=== PATIENT | female | born 1955 | race Caucasian/White ===

== ENCOUNTER 2019-11-13 09:31 | Outpatient (CLI) | payer BC, SELFPAY ==
--- NOTE | ~2019-11-13 | MM_ITS ---
EXAMINATION: MM scrn harry implant BI w osvaldo HISTORY: Screening mammogram TECHNIQUE: Craniocaudal and mediolateral oblique 3-D tomosynthesis images with implant displacement a nd synthetic 2-D images were generated. Craniocaudal and mediolateral oblique views of the breasts wi thout implant displacement were obtained using full field digital mammography. CAD analysis was submi tted and interpreted. COMPARISON: 04/10/2016 bilateral digital diagnostic mammogram and limited right breast ultrasound BREAST PARENCHYMAL COMPOSITION: There are scattered areas of fibroglandular density. FINDINGS: Status post bilateral augmentation mammoplasty. There is a biopsy marker on the left; history of prior benign biopsy. There is no evidence of suspici ous mass, calcification, or architectural distortion to suggest malignancy in either breast. There sands s been no suspicious interval change. IMPRESSION: 1. No mammographic evidence of malignancy. 2. Recommend routine screening mammography in one year. BI-RADS Category 2: Benign finding(s). Reviewed, dictated and finalized at location A.
== END 2019-11-13 09:32 | disposition home or self-care (01) ==
LOC: ANHIMG 09:34
PROVIDERS: PCP Family Medicine Adolescent Medicine; Visit Provider Family Medicine Adolescent Medicine
DX: Z12.31 Encounter for screening mammogram for malignant neoplasm of breast (principal)
CPT/HCPCS: 77063; 77067

== ENCOUNTER 2020-08-20 12:32 | Outpatient (CLI) | payer BC, SELFPAY ==
--- NOTE | ~2020-08-20 | XR_ITS ---
EXAMINATION: XR chest 2V DATE: 08/20/2020 13:35 INDICATION: Shortness of breath TECHNIQUE: PA and lateral views of the chest are obtained. COMPARISON: 07/07/2017 FINDINGS: There are chronic airspace opacities of the left lung base. A calcified nodule of the left lung base is consistent with old granulomatous disease. There is no pleural effusion or pneumothorax. The cardiomediastinal silhouette is normal. There is mild thoracic spondylosis. Bilateral breast imp lants are noted. IMPRESSION: 1. Chronic left basilar atelectasis. Reviewed, dictated and finalized at location B.
== END 2020-08-20 12:33 | disposition home or self-care (01) ==
PROVIDERS: PCP Family Medicine Adolescent Medicine; Visit Provider Physician Assistant
DX: R06.02 Shortness of breath (principal); R91.8 Other nonspecific abnormal finding of lung field
CPT/HCPCS: 71046

== ENCOUNTER 2020-10-19 13:20 | Emergency (ER) | payer BC, SELFPAY ==
--- NOTE | ~2020-10-19 | CT_ITS ---
EXAMINATION: CT brain wo con, CT cervical spine wo con EXAM DATE: 10/19/2020 13:54 INDICATION: Head injury 11 days ago, dizziness. Left-sided neck pain. TECHNIQUE: Spiral CT of the head was performed without contrast. Axial, coronal and sagittal images were reviewed. Spiral CT of the cervical spine was performed without contrast. Axial images were rev iewed. Coronal and sagittal reformatted images were also reviewed. The dose-length product (DLP) fo r this examination was 605.33 (accession [id number]), 369.09 (accession [id number]) mGy-cm. The exposure was tailored according to patient size, and iterative reconstruction (ASIR) was used as additional dose reduction technique. Comparison is made to prior examination from 10/03/2013. FINDINGS: HEAD CT: There is no acute intraparenchymal hemorrhage. No evidence of intraparenchymal brain mass l esion. No evidence of acute infarction. There is mild periventricular and subcortical hypodensity, n onspecific but probably related to small vessel ischemic disease. There is mild prominence of the s ulci and ventricles related to cerebral atrophy. There is no mass effect or midline shift. There i s no obstructive hydrocephalus suspected. There are no extra-axial collections. There are no acute calvarial fractures. Patient has had bilateral ocular lens surgery. Soft tissue is unremarkable. T he visualized sinuses and mastoid air cells are well aerated. CERVICAL CT: There is no evidence of acute cervical fracture. The odontoid process is intact. Pre- dens space is normal. Prevertebral soft tissue is normal. There are no soft tissue abnormalities id entified. There is no disc space widening or traumatic vertebral body subluxation suspected. Mild t o moderate cervical spondylosis. Small right thyroid nodules. A detailed level by level evaluation o f spondylosis can be added as addendum if requested. IMPRESSION: 1. No acute intracranial findings or cervical fracture. 2. Cervical spondylosis. 3. Mild intracranial age related findings. Reviewed, dictated and finalized at location B. IMPRESSION: 1. No acute intracranial findings or cervical fracture. 2. Cervical spondylosis. 3. Mild intracranial age related findings.
[2020-10-19 13:21] VITALS: BP 154/77; PULSE 64; RESP 20; TEMP 36.4; O2SAT 96
== END 2020-10-19 14:00 | disposition left against medical advice (07) ==
PROVIDERS: Emergency Provider Emergency Medicine; PCP Family Medicine Adolescent Medicine
DX: R51.9 Headache, unspecified (principal)
CPT/HCPCS: 70450; 72125; 99199

== ENCOUNTER → 2022-04-14 13:03 | Outpatient (CLI) | payer OTHER, SELFPAY ==
--- NOTE | ~2022-04-14 | XR_ITS ---
XR chest 2V 04/14/2022 13:27 Indication: History of pneumonia. Asthma. Procedure: 2 view chest Comparison: Comparison to multiple prior studies sequentially, with oldest reviewed study dated 09/2016. Findings: There is hiatal hernia. Calcified granulomas present in the left lung base. Heart size norm al. No acute focal pneumonia, edema or effusion. No acute osseous abnormality. Impression: 1: No acute cardiopulmonary disease. 2: Moderate size hiatal hernia. Reviewed, dictated and finalized at location L. UP WORKER Impression: 1: No acute cardiopulmonary disease. 2: Moderate size hiatal hernia.
--- NOTE | ~2022-04-14 | XR_ITS ---
Right elbow Technique: AP, oblique, and lateral views were obtained. Clinical History: Pain Findings: No acute fracture or dislocation is seen. Osseous alignment is anatomic. Joint spaces are p reserved. There is mild enthesopathic change at the lateral epicondyle of the humerus. There is no di splacement of the fat pads, and no evidence for joint effusion. Impression: No fracture or dislocation. Mild enthesopathic change at the lateral epicondyle of the humerus. Reviewed, dictated and finalized at location M. CIL MACHINE OPERATOR Impression: No fracture or dislocation. Mild enthesopathic change at the lateral epicondyle of the humerus.
== END ==
PROVIDERS: PCP Emergency Medicine; Visit Provider Emergency Medicine
DX: J18.9 Pneumonia, unspecified organism (principal); J45.909 Unspecified asthma, uncomplicated; K44.9 Diaphragmatic hernia without obstruction or gangrene
CPT/HCPCS: 71046; 73080

== ENCOUNTER 2022-05-19 08:00 | Outpatient (CLI) | payer OTHER, SELFPAY | END 2022-05-19 08:01 | disposition home or self-care (01) | LOC: ANHAUDIO 08:01 | PROVIDERS: PCP Emergency Medicine; Visit Provider Emergency Medicine | DX: H90.0 Conductive hearing loss, bilateral (principal) | CPT/HCPCS: 92557; 92567 ==

== ENCOUNTER 2022-07-07 14:16 | Outpatient (CLI) | payer OTHER, SELFPAY ==
--- NOTE | ~2022-07-07 | XR_ITS ---
XR chest 2V 07/07/2022 14:30 Indication: Cough for 5 days Procedure: PA and lateral views of the chest Comparison: Comparison to multiple prior studies sequentially, with oldest reviewed study dated 09/2016. Findings: Large hiatal hernia. Bibasilar atelectasis. Heart size normal. No edema, significant effusi on or pneumothorax. No acute osseous abnormality. Impression: 1: Bibasilar atelectasis. 2: Large hiatal hernia. Reviewed, dictated and finalized at location L. Impression: 1: Bibasilar atelectasis. 2: Large hiatal hernia.
== END 2022-07-07 14:17 | disposition home or self-care (01) ==
LOC: ANHIMG 14:20
PROVIDERS: PCP Emergency Medicine; Visit Provider Emergency Medicine
DX: R05.9 Cough, unspecified (principal); R91.8 Other nonspecific abnormal finding of lung field; K44.9 Diaphragmatic hernia without obstruction or gangrene
CPT/HCPCS: 71046

== ENCOUNTER → 2022-11-23 10:59 | Outpatient (CLI) | payer MEDICARE, MEDICAID, SELFPAY ==
--- NOTE | ~2022-11-23 | XR_ITS ---
Clinical Indication: Bilateral pneumonia PA and lateral views of the chest: Comparison: 07/07/2022 Findings: Stable calcified left basilar granuloma. The lungs are otherwise clear, without evidence of focal consolidation or pleural effusion. Cardiomediastinal silhouette is within normal limits. Hiat al hernia is unchanged. Impression: No acute pulmonary abnormality. Stable hiatal hernia. Reviewed, dictated and finalized at [facility]. Impression: No acute pulmonary abnormality. Stable hiatal hernia.
== END ==
PROVIDERS: PCP Emergency Medicine; Visit Provider Emergency Medicine
DX: J18.9 Pneumonia, unspecified organism (principal); K44.9 Diaphragmatic hernia without obstruction or gangrene
CPT/HCPCS: 71046

== ENCOUNTER 2023-04-24 12:24 | Emergency (ER) | payer MEDICARE, MEDICAID, SELFPAY ==
[2023-04-24] VITALS (13 sets, daily range): BP systolic 153–216; BP diastolic 66–89; PULSE 54–75; RESP 13–20; TEMP 36.6; O2SAT 95–98
--- NOTE | ~2023-04-24 | CT_ITS ---
EXAMINATION: CT brain wo con INDICATION: Sudden onset headache COMPARISON: 10/19/2020 TECHNIQUE: Standard unenhanced head CT. The dose-length product (DLP) was 605.33 mGy-cm. The mA was a djusted according to patient size. Iterative reconstruction technique was employed. FINDINGS: No intracranial hemorrhage, acute infarction, or abnormal mass lesion. The ventricles are n ormal. No abnormal mass effect or midline shift. The osman-white matter differentiation is normal. The basal cisterns are patent. The orbits are unremarkable. The paranasal sinuses, mastoids and calvariu m are normal.. There is frontal skull hyperostosis (hyperostosis frontalis interna), a normal variant . IMPRESSION: 1. No acute intracranial abnormality. Reviewed, dictated and finalized at location B. ICAL FORCEPS FABRICATOR
--- NOTE | 2023-04-24 12:38 | ECG_ITS ---
Measurements Intervals [place] Rate: 50 P: 30 AK: 171 QRS: 15 QRSD: 90 T: 73 QT: 413 QTc: 377 Interpretive Statements SINUS BRADYCARDIA BORDERLINE ST-T WAVE ABNORMALITY- HIGH LATERAL LEADS BASELINE ARTIFACT- I, III, AVR, AVL, AVF BORDERLINE ECG NO PREVIOUS ECG AVAILABLE FOR COMPARISON Electronically Signed On 04-24-2023 13:08:58 LIFE SKILLS EDUCATOR by Pa Cavazos D.O.
--- NOTE | 2023-04-24 12:50 | ED.GENADULT ---
HPI - General Adult General Chief complaint: Headache Stated complaint: headache Time Seen by Provider: 04/24/23 12:37 History of Present Illness HPI narrative: 67-year-old female presenting to the emergency department for evaluation of elevated blood pressure and headache that is unlike her previous headaches. Patient states that typically her blood pressures run in the 120 systolic. Patient reports she stopped taking all of her blood pressure medications approximately a year ago and does take celtic salt. Patient reports approximate 45 minutes prior to arrival she had onset of chest tightness and headache. Patient states she does intermittently take the losartan. Patient states she has not had any blood pressure medications today. Related Data Home Medications Medication Instructions Recorded Confirmed lorazepam 1 mg tablet 1 mg PO TID PRN 10/18/22 12/15/22 Allergies Allergy/AdvReac Type Severity Reaction Status Date / Time codeine AdvReac Intermediate VOMITTING Verified 04/24/23 13:46 morphine AdvReac Intermediate VOMITTING Verified 04/24/23 13:46 Sulfa (Sulfonamide AdvReac Intermediate HEADACHE Verified 04/24/23 13:46 Antibiotics) prochlorperazine AdvReac Confusion Verified 04/24/23 13:46 ALL PAIN MEDICATOINS EXCEPT AdvReac Unknown NAUSEA Uncoded 04/24/23 13:46 TORADOL Review of Systems Review of Systems: All systems reviewed & are unremarkable except as noted in HPI and below PMFSH Surgical History Surgical History Cholecystectomy planned 1980s Family History Family History Father Diabetes mellitus Mother Thyroid disorder Social History Social History Social History: Caffeine-occasionally Smoking status: Never smoker Alcohol intake: never Substance use: never Substance use type: does not use Lack of Transportation: No Lack of Food: Sometimes True Current Housing: I Do Not Have Housing Concerned About Future Housing: No Difficulty Paying Gas/Electric Bills: YES Difficulty Paying for Meds: No Currently Unemployed: YES Education: Trade/Vocational Certificate Difficulty w/ Childcare or Family Care: No Exam Narrative: APPEARANCE: Well appearing, no pain, no distress, well-nourished. HEAD: normocephalic, atraumatic. EYES: PERRLA/EOMI, conjunctivae clear. NOSE: Normal no drainage EARS:TMS clear with good light reflex. THROAT: Pharynx clear, no exudate. NECK: Supple. No adenopathy, no masses. RESPIRATORY: Airway patent, respirations nonlabored. Clear to auscultation bilaterally, no rales, rhonchi, wheezing. CARDIOVASCULAR: Regular rate and rhythm without murmurs rubs or gallops. ABDOMINAL: Soft, nontender, nondistended, normal bowel sounds MUSCULOSKELETAL: Moves all extremities. Strength/ROM intact, No edema, No calf tenderness. NEURO: Alert. Cranial nerves II through XII intact. Good gait. Good coordination SKIN: Warm, dry. Normal Color Course Course Emergency Course: Patient's blood pressure was improved, headache was improved and patient was discharged home. Vital Signs Vital signs: Vital Signs Temperature 97.9 F 04/24/23 12:26 Pulse Rate 54 L 04/24/23 12:26 Respiratory Rate 16 04/24/23 12:26 Blood Pressure 184/70 H 04/24/23 12:26 Pulse Oximetry 96 04/24/23 12:26 Oxygen Delivery Room Air 04/24/23 12:26 Temperature 97.9 F 04/24/23 12:26 Pulse Rate 71 04/24/23 17:12 Respiratory Rate 20 04/24/23 17:12 Blood Pressure 167/69 H 04/24/23 17:12 Pulse Oximetry 95 04/24/23 17:12 Oxygen Delivery Room Air 04/24/23 12:26 Medical Decision Making MDM Narrative Medical decision making narrative: 67-year-old female presenting emergency department for evaluation of elevated blood pressure and headache. Patient is afebrile with no leukocytosis
[2023-04-24] MEDS: LOSARTAN POTASSIUM 100 MG TABLET PO (13:01)
[2023-04-24] MEDS: METOPROLOL TARTRATE 25 MG TABLET PO (13:51)
[2023-04-24 14:13] LABS: Basophils Absolute Auto 0.1 K/mm3 (0.0-0.1); Basophils Percent Auto 0.6 % (0.2-1.2); Eosinophils Absolute Auto 0.2 K/mm3 (0-0.3); Eosinophils Percent Auto 2.1 % (0-4.4); Hematocrit 38.7 % (37.0-47.0); Hemoglobin 11.2 g/dL (12.0-15.0); Immature Granulocyte Absolute 0.02 K/mm3 (0.00-0.031); Immature Granulocyte Percent A 0.2 % (0-0.5); Lymphocytes Percent Auto 23.5 % (18.3-44.2); Mean Corpuscular HGB Conc 28.9 g/dl (32-36); Mean Corpuscular Hemoglobin 23.6 pg (26-34); Mean Corpuscular Volume 81.5 fl (80-100); Mean Platelet Volume 9.9 fl (7.4-10.4); Monocytes Absolute Auto 0.5 K/mm3 (0.1-0.6); Monocytes Percent Auto 5.2 % (2.6-8.5); Neutrophils Absolute Auto 6.4 K/mm3 (1.3-6.7); Neutrophils Percent Auto 68.4 % (45.5-73.1); Platelet Count Result 348 k/mm3 (150-375); Red Blood Count 4.75 M/mm3 (4.2-5.4); White Blood Count 9.4 K/mm3 (4.5-10.0)
[2023-04-24 14:19] LABS: Alanine Aminotransferase 22 U/L (6-35); Albumin Level 4.6 g/dL (3.5-5.1); Alkaline Phosphatase 56 U/L (38-126); Anion Gap 9 mmol/L (8-16); Aspartate Amino Transferase 27 U/L (14-36); Bilirubin,Total 0.5 mg/dL (0.2-1.3); Blood Urea Nitrogen 12 mg/dL (7-17); Calcium 9.8 mg/dL (8.4-10.2); Carbon Dioxide 22 mmol/L (22-30); Chloride 107 mmol/L (98-107); Estimated CRCL calculation 92 ml/min; Estimated Glomerular Filt Rate > 60; Glucose 99 mg/dL (65-110); Potassium 3.9 mmol/L (3.4-5.0); Sodium 138 mmol/L (137-145)
[2023-04-24 14:30] LABS: Troponin I < 0.012 ng/mL (0.000-0.034)
[2023-04-24] MEDS: LORazepam INJ (*CRX) 2 MG/ML VIAL 0.5 MG IV PUSH (14:33)
[2023-04-24] MEDS: KETOROLAC 15 MG/ML VIAL (*BKC) IV PUSH (14:33)
[2023-04-24 14:58] LABS: Platelet Estimate Adequate (Adequate)
[2023-04-24 15:00] LABS: Anisocytosis 1+ (NORMAL); Hypochromasia 1+ (NORMAL); Macrocytosis 1+ (NORMAL); Schistocytes None Seen (NORMAL)
[2023-04-24] MEDS: hydrALAZINE HCL 20 MG/ML VIAL 10 MG IV PUSH (15:26)
[2023-04-24 15:36] LABS: Appearance Urine Clear (Clear); Bacteria Urine Rare /hpf; Bilirubin Urine Negative (Negative); Blood Urine Negative (Negative); Color Urine Yellow (Yellow); Glucose Urine UA Negative (Negative); Ketones Urine Negative (Negative); Leukocyte Esterase Ur 2+ LEU/UL (Negative); Nitrate Urine Negative (Negative); Non Pathogenic Casts 0-2; Protein Urine Negative (Negative); RBC Urine 0-2 /hpf (0-2); Specific Grav Ur 1.016 (1.001-1.035); Squamous Epithelial Cell Urine Few /hpf (Few); Urobilinogen Urine 0.2 mg/dL (<2.0); WBC Urine 21-50 /hpf; pH Urine 6.5 (5.0-9.0)
[2023-04-24] MEDS: METOPROLOL TARTRATE INJ 5 MG/5 ML VIAL IV PUSH (15:40)
[2023-04-24 15:47] LABS: Add Urine Microscopic? YES
== END 2023-04-24 17:36 | disposition home or self-care (01) ==
PROVIDERS: Emergency Provider Emergency Medicine; PCP Emergency Medicine
DX: R51.9 Headache, unspecified (principal); I10 Essential (primary) hypertension; Z90.49 Acquired absence of other specified parts of digestive tract; R00.1 Bradycardia, unspecified; R94.31 Abnormal electrocardiogram [ECG] [EKG]; R82.998 Other abnormal findings in urine
CPT/HCPCS: 36415; 70450; 80053; 81001; 84484; 85025; 87086; 93005; 96374; 96375; 99284; A9270; J0360; J1885; J2060

== ENCOUNTER 2023-05-09 15:12 | Outpatient (CLI) | payer MEDICARE, MEDICAID, SELFPAY ==
--- NOTE | ~2023-05-09 | MM_ITS ---
EXAMINATION: MM scrn harry implant BI w osvaldo HISTORY: Screening mammogram TECHNIQUE: Craniocaudal and mediolateral oblique 3-D tomosynthesis images with implant displacement a nd synthetic 2-D images were generated. Craniocaudal and mediolateral oblique views of the breasts wi thout implant displacement were obtained using full field digital mammography. CAD analysis was submi tted and interpreted. COMPARISON: Comparison to multiple prior studies sequentially, with oldest reviewed study dated 11/20. BREAST PARENCHYMAL COMPOSITION: Not dense: There are scattered areas of fibroglandular density. FINDINGS: There is no evidence of suspicious mass, calcification, or architectural distortion to sugg est malignancy in either breast. There has been no suspicious interval change. IMPRESSION: 1. No mammographic evidence of malignancy. 2. Recommend routine screening mammography in one year. BI-RADS Category 1: Negative Reviewed, dictated and finalized at location A.
== END 2023-05-09 15:13 | disposition home or self-care (01) ==
PROVIDERS: PCP Emergency Medicine; Visit Provider Emergency Medicine
DX: Z12.31 Encounter for screening mammogram for malignant neoplasm of breast (principal)
CPT/HCPCS: 77063; 77067

== ENCOUNTER 2023-08-14 11:17 | Outpatient (CLI) | payer MEDICARE, MEDICAID, SELFPAY ==
--- NOTE | ~2023-08-14 | CT_ITS ---
EXAMINATION: CT soft tissue neck w con DATE: 08/14/2023 12:40 INDICATION: Sialoadenitis, unspecified. TECHNIQUE: Computed tomography (CT) of the neck was performed with 75 mL Omnipaque-350 intravenous co ntrast. Automated exposure control and iterative reconstruction technique were employed. The dose-lizette gth product was 507.91 mGy-cm. COMPARISON: None FINDINGS: There are likely changes of ocular lens replacement surgeries. There are nodules in the thy roid measuring up to 16 mm. The major salivary glands are normal. No sialolith. There are no patholog ically enlarged lymph nodes. The mastoid air cells are normal. The paranasal sinuses are clear. There is mild cervical spondylosis. IMPRESSION: 1. Normal major salivary glands. 2. Multinodular goiter. Consider thyroid ultrasound for risk stratification. Reviewed, dictated and finalized at location A.
[2023-08-14 12:17] LABS: Estimated Glomerular Filt Rate > 60
== END 2023-08-14 11:18 | disposition home or self-care (01) ==
PROVIDERS: PCP Nurse Practitioner Family; Visit Provider Otolaryngology
DX: K11.20 Sialoadenitis, unspecified (principal); K11.5 Sialolithiasis; E04.2 Nontoxic multinodular goiter
CPT/HCPCS: 70491; Q9967

== ENCOUNTER 2024-06-20 10:08 | Outpatient (CLI) | payer MEDICARE, MEDICAID, SELFPAY ==
--- NOTE | ~2024-06-20 | DEXA_ITS ---
Bone Density Report Name: ARIADNE GUADALUPE Age: 68 Sex: Female Ethnicity: White Date of : 1955 Indication: postmenopausal; screening for osteoporosis; height loss; cancer; hysterectomy; Referring Provider: FRAN CHEATHAM Study: Bone densitometry was performed. Exam Date: June 20, 2024 Accession number: [id number] Bone Density: Region BMD T-score Z-score Classification AP Spine(L1-L4) 0.950 -0.9 1.0 Normal Femoral Neck (Left) 0.709 -1.3 0.3 Osteopenia Total Hip (Left) 0.939 0.0 1.3 Normal Femoral Neck (Right) 0.681 -1.5 0.1 Osteopenia Total Hip (Right) 0.874 -0.6 0.7 Normal Total Hip Mean 0.906 -0.3 1.0 Normal World Health Organization criteria for BMD impression classify patients as: Normal (T-score at or above -1.0), Osteopenia (T-score between -1.0 and -2.5), or Osteoporosis (T-score at or below -2.5). 10-year Fracture Risk(1): Major Osteoporotic Fracture 8.3% Hip Fracture 0.9% Reported Risk Factors: [place] (), Neck BMD=0.681, BMI=37.9 (1) FRAX(R) Version 3.08. Fracture probability calculated for an untreated patient. Fracture probability may be lower if the patient has received treatment. Previous Exams: Region Exam Age BMD T-score BMD Change BMD Change Date g/cm2 vs Baseline vs Previous AP Spine (L1-L4) 06/20/2024 68 0.950 -0.9 0.012 (1.3%) 0.012 (1.3%) 07/14/2017 61 0.938 -1.0 Total Hip(Left) 06/20/2024 68 0.939 0.0 -0.019 (-2.0%) -0.019 (-2.0%) 07/14/2017 61 0.958 0.1 Total Hip(Right) 06/20/2024 68 0.874 -0.6 0.010 (1.1%) 0.010 (1.1%) 07/14/2017 61 0.864 -0.6 *Denotes significance at 95% confidence level, LSC for AP Spine = 0.022 g/cm2, LSC for Total Hip = 0.027 g/cm2 Clinical Information Provided by Patient: Has used the following medications: Vitamin D Has the following medical conditions: Cancer, Hysterectomy Patient maximum height was 65 Menopause Age: 57 No regular weight bearing exercise Onset of menses at age 14 Number of children 2 Impression: The patient has low bone mass, based on the Right Femoral Neck T-score. The patient has an estimated ten-year risk of hip fracture of 0.9% and an estimated ten-year risk of major fracture of 8.3%, based on the WHO FRAX algorithm. No significant bone loss was observed. Discussion: BONE DENSITY IS LOW AT ONE OR MORE SKELETAL SITES. This patient's lowest T-score is low at one or more skeletal sites. It meets the World Health Organization's (WHO) criteria for ?low bone mass? (T-score between -1.0 and -2.5). The patient's 10-year risk of fracture as calculated by FRAX is less than the threshold where pharmacological therapy is recommended by the National Osteoporosis Foundation (NOF). However, all treatment decisions require clinical judgment and consideration of individual patient factors, including patient preferences, comorbidities, previous drug use, risk factors not captured in the FRAX model (e.g., frailty, falls, vitamin D deficiency, increased bone turnover, interval significant decline in bone density) and possible under or overestimation of fracture risk by FRAX. The patient should follow a healthful lifestyle (good nutrition with adequate calcium and vitamin D, and appropriate weight-bearing exercise). Follow-Up: Consider repeating this study in 2 to 3 years to reassess this patient's status, or sooner if there is some new clinical indication. Reported by: JOHN on 06/20/2024 11:00:00 AM. Reviewed, dictated and finalized at location A. MARINO
--- OUTSIDE RECORDS SUMMARY | 2024-06-20 10:51 | XMS_ITS ---
Author Organization [facility] Address [address] [place] [address] Care Team Providers Care Fine Craft Artist Name Role Phone BLAKE PETERS MD Unavailable Unavailable Mega Cartwright Unavailable [phone] REASON FOR VISIT WRINKLE CHASER INTAKE Encounters Encounter Location Date [facility] [address] [place] [address] [facility]/13/2024 Mega Cartwright Plan Of Treatment No Information Progress Notes * ARIADNE GUADALUPE BDOB:[birth year] (68 yo F)Acc No.[id number]:06/13/2024 Patient: Naila ARIADNE PICKERING :1955 A ge:68 Y S ex:Female Address:[address] [place] [address], [id number] * * Date:
--- OUTSIDE RECORDS SUMMARY | 2024-06-20 10:51 | XMS_ITS | Clinical Summary ---
Author Organization [facility] Address [address] [address] Care Team Providers Care Rn Surgical Pcu Name Role Phone Fernandez Mancini MD Unavailable [phone] Maximo Arreguin MD Primary Care Provider + Source Comments [facility],non-owned Affiliates and Associated Physician Practices is amultiple site organization consisting of ambulatory clinics and hospital sitesin [place], [place], [place] and [place]. This disclosure is being madepursuant to the Care Everywhere program and may not contain all information available regarding this patient. Last updated 17.[facility] Allergies Active Allergy Reactions Criticality Noted Date Comments Adhesive Sensitivity 09/25/2012 Welts from bandages Codeine Nausea and/or Vomiting 09/25/2012 Prochlorperazine 09/25/2012 Makes her go crazy Hydromorphone Nausea and/or Vomiting Medium 09/26/2012 Morphine 09/25/2012 Stomach goes into complete spasms Sulfa Drugs 09/25/2012 Severe headache Medications * Be aware that medications may not be up to date on this document. Alwaysverify current medications with the patient. lisinopril (PRINIVIL; ZESTRIL) 20 MG tablet Take 20 mg by mouth once daily. Active albuterol HFA (VENTOLIN HFA) 8 gram inhaler Inhale 2 Puffs by mouth every 4 hours as needed. Active mometasone-formo terol (DULERA) 200-5 MCG/ACT AERO inhaler Inhale 2 Puffs by mouth 2 times daily. Active fish oil/omega-3 fatty acids (FISH OIL) 1000 MG capsule Take 1,000 mg by mouth daily with food. Active Cholecalciferol (VITAMIN D) 1000 UNITS capsule Take 1,000 Units by mouth once daily. Active magnesium oxide (MAG-OX) 400 MG tablet Take 400 mg by mouth once daily. Active Krill Oil 1000 MG CAPS Take by mouth. Active calcium carbonate (TUMS) 500 MG chew tablet Take 8 Tabs by mouth daily with food. Active Active Problems Problem Noted Date Diagnosed Date GERD (gastroesophageal reflux disease) 4 Resolved Problems Problem Noted Date Diagnosed Date Resolved Date GERD (gastroesophageal reflux disease) 08/26/2013 05/14/2016 Family History Medical History Relation Name Comments Diabetes Father Cancer Maternal Grandmother ovarian Relation Name Status Comments Father Maternal Grandmother Social History Tobacco Use Types Packs/Day Years Used Date Smoking Tobacco: Never Smokeless Tobacco: Never Alcohol Use Standard Drinks/Week Comments No 0 (1 standard drink = 0.6 oz pur e alcohol) Comments No Sex and Gender Information Value Date Recorded Sex Assigned at Not on file Legal Sex Female 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 Gender Identity Not on file Sexual Orientation Not on file Last Filed Vital Signs Vital Sign Reading Time Taken Comments Blood Pressure 124/78 09/16/2013 1:16 PM CDT Pulse 63 01/06/2014 2:03 PM JAVA PROGRAMMER Temperature 37 C (98.6 F) 11/16/2012 3:43 PM CDT Respiratory Rate 16 11/16/2012 3:43 PM CDT Oxygen Saturation 97% 01/06/2014 2:03 PM JAVA PROGRAMMER Inhaled Oxygen Concentration - - Weight 89.4 kg (197 lb) 12/26/2013 12:43 PM JAVA PROGRAMMER Height 165.1 cm (5' 5 ) 12/26/2013 12:43 PM JAVA PROGRAMMER Body Mass Index 32.78 12/26/2013 12:43 PM JAVA PROGRAMMER Plan of Treatment Health Maintenance Due Date Last Done Comments BONE DENSITY TESTING 1955 COLOGUARD (AGES 45-75) - COL ON CA SCREENING 1955 COLON MONITORING 1955 COLONOSCOPY - COLON CA SCREENING 1955 CT COLONOGRAPHY - COLON CA SCREENING 1955 Colorectal Cancer Screening 1955 FIT - COLON CA SCREENING 1955 FLEX SIG - COLON CA SCREENING 1955 MAMMOGRAM 1955 HEPATITIS C SCREENING 12/01/1975 DTAP/TDAP/TD VACCINES (1 - Tdap) 1976 PNEUMOCOCCAL VACCINE 50+ (1 of 1 - PCV) 12/06/2007 ZOSTER VACCINE (1 of 2) 12/06/2007 COVID-19 VACCINE (1 - 2023-2 5 season) 2023 DEPRESSION SCREENING 02/21/2024 MEDICARE AWV CALENDAR YEAR 2024 INFLUENZA VACCINE (Season Ended) 2024 LIPID TESTING 11/08/2028 11/09/2023 Respiratory Syncytial Virus (RSV) Vaccine Pt: or over 60 yrs (1 - 1-dose 75+ series) 2032 HEPATITIS B VACCINE Aged Out No longe r eligible based on patient's age to complete this topic HIB VACCINE Aged Out No longer eligi ble based on patient's age to complete this topic HPV VACCINE Aged Out No longer eligi ble based on patient's age to complete this topic MENINGOCOCCAL (Group B) VACC INE SHARED DECISION-MAKING Aged Out No longer eligibl e based on patient's age to complete this topic MENINGOCOCCAL GROUPS A/C/Y/W VACCINE Aged Out No longer eligible b ased on patient's age to complete this topic Medical Devices Implanted Type Area Renewable Energy Broker Device Identifier Shelf Expiration Date Model / Serial / Lot Dev Sys Sgl Obtryx Implanted:Qty: 1 on 11/14/2012 by Fernandez Mancini MD at [facility] N/A: Bladder [employer] Scimed 09/21/2015 [id number] / / [id number] - [id number] Implanted:Qty: 1 on 11/14/2012 by Fernandez Mancini MD at [facility] N/A: Vagina [employer] [place] 09/20/2014 [id number] / [id number] / [id number] Description:Uphold LITE Vagi nal Support Sysyem Insurance MEDICAID [facility] MANAGED MEDICARE ADV Advance Directives * FULL RESUSCITATION (Latest Code Status on File) Date Activated Date Inactivated Comments 11/14/2012 2:23 PM 11/16/2012 5:32 PM * FULL RESUSCITATION Date Activated Date Inactivated Comments 11/14/2012 7:17 AM 11/14/2012 2:23 PM * FULL RESUSCITATION Date Activated Date Inactivated Comments 09/26/2012 3:09 PM 09/26/2012 7:37 PM Care Teams Rn Surgical Pcu Relationship Specialty Start Date End Date Maximo Arreguin MD [address] [place] [id number] PCP - General 06/15/20 Fernandez Mancini MD [address] [phone] Assembly Machine Set Up Mechanic Obstetrics and Gynecology 05/14/16
--- OUTSIDE RECORDS SUMMARY | 2024-06-20 10:51 | XMS_ITS | Encounter Summary ---
Author Organization [facility] Address [address] [place] [address] Care Team Providers Care Batt Machine Operator Name Role Phone Fernandez Mancini MD Unavailable [phone] Maximo Arreguin MD Primary Care Provider + Encounter Details Date Type Department Care Team (Late st Contact Info) Description 11/14/2023 Lab Requisition [facility] - DermPath Lab [address] [place] [address] [facility] [place] [address] [place] [address] Social History Tobacco Use Types Packs/Day Years Used Date Smoking Tobacco: Never Smokeless Tobacco: Never Alcohol Use Standard Drinks/Week Comments No 0 (1 standard drink = 0.6 oz pur e alcohol) Comments No Sex and Gender Information Value Date Recorded Sex Assigned at Not on file 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 Gender Identity Not on file Sexual Orientation Not on file documented as of this encounter Plan of Treatment Not on file documented as of this encounter Procedures Procedure Name Priority Date/Time Associated Diagnosis Comments DERMATOPATHOLOGY Routine 11/14/2023 10:2 4 AM CDT documented in this encounter Results * DERMATOPATHOLOGY (11/14/2023 10:24 AM CDT) Case Report Dermatopathology Report Case: [id number] Authorizing Provider: Christine Epstein PA Collected: 11/14/2023 10:24 AM Ordering Location: [facility] - Received: 11/14/2023 03:13 PM DermPath Lab Pathologist: Bennie Oseguera MD Specimens: A) - Skin, low back B) - Skin, left wrist C) - Skin, left calf 4 2:20 PM CDT DERMATOPATHOLOGY LABORATORY Final Diagnosis Specimen A. SKIN, low back: LENTIGINOUS MELANOCYTIC NEVUS, JUNCTIONAL TYPE, IRRITATED (D22.5) Specimen B. SKIN, left wrist: INTRADERMAL MELANOCYTIC NEVUS (D22.62) Specimen C. SKIN, left calf: BASAL CELL CARCINOMA, SUPERFICIAL MULTIFOCAL (C44.719) DERMAL SCAR (L90.5) 4 2:20 PM CDT DERMATOPATHOLOGY LABORATORY Clinical History A: Nevus B: R/O Atypia C: R/O SCC 4 2:20 PM CDT DERMATOPATHOLOGY LABORATORY Gross Description Specimen A: Received is one formalin filled container labeled with the patient's name and designated low back. The specimen consists of a shave biopsy measuring 7x4x1 mm. Jar 0. Specimen B: Received is one formalin filled container labeled with the patient's name and designated left wrist. The specimen consists of a shave biopsy measuring 5x5x2 mm. Jar 0. Specimen C: Received is one formalin filled container labeled with the patient's name and designated left calf. The specimen consists of a shave biopsy measuring 12x8x1 mm. Jar 0. 4 2:20 PM CDT DERMATOPATHOLOGY LABORATORY Microscopic Description Specimen A. SKIN, low back: This is a junctional nevus. There is melanin pigment in the stratum corneum. There is a lentiginous proliferation of melanocytes between nests of cells along the dermal-epidermal junction. There is underlying fibroplasia of the papillary dermis. (Junctional [place]'s Nevus) Specimen B. SKIN, left wrist: There are nests of cytologically bland melanocytes within the dermis that mature with depth. Specimen C. SKIN, left calf: Attached to the undersurface of the epidermis, there are small aggregates of basaloid cells with a high nuclear to cytoplasmic ratio and peripheral palisading. There are fibroblasts and collagen bundles oriented parallel to the skin surface with elongated blood vessels, some of which are oriented perpendicular to the skin surface. 4 2:20 PM CDT DERMATOPATHOLOGY LABORATORY Disclaimer An external and internal positive and negative controls are appropriate for the histochemical, immunohistochemical and immunofluorescence stain(s) in this case (if any), except where stated explicitly. The performance characteristics of the stain(s) cited in this report were developed and its performance characteristic determined by the Dermatopathology Laboratory at [facility], directed by Dr. Maia Oseguera. These tests need not be, and therefore are not, approved by the [place] Food and Drug Administration. The tests are used for clinical purposes. Billing Codes Specimen Charges Stain Charges 68783 [id number] 06400 1 1 1 4 2:20 PM CDT DERMATOPATHOLOGY LABORATORY Embedded Images 4 2:20 PM CDT DERMATOPATHOLOGY LABORATORY Pathology/Cytology TISSUE SPECIMEN FROM SKIN / Unknown 11/14/2023 10:24 AM CDT 11/14/2023 3:13 PM CDT Miscellaneous samples (specimen) TISSUE SPECIMEN FROM SKIN / Unknown 11/14/2023 10:24 AM CDT 11/14/2023 3:13 PM CDT Miscellaneous samples (specimen) TISSUE SPECIMEN FROM SKIN / Unknown 11/14/2023 10:24 AM CDT 11/14/2023 3:13 PM CDT [facility] - PATHOLOGY/CYTOLOGY ORDERAB LES Final Result DERMATOPATHOLOGY LABORATORY [facility] - Department of Dermatology [facility] Medicine [address] [place] [address], [address] [phone] documented in this encounter Visit Diagnoses Not on filedocumented in this encounter Care Teams Batt Machine Operator Relationship Specialty Start Date End Date Maximo Arreguin MD [address] [place] [address] PCP - General 06/15/20 Fernandez Mancini MD [address] [place] [address] Coal Tram Driver Obstetrics and Gynecology 05/14/16 documented as of this encounter
--- OUTSIDE RECORDS SUMMARY | 2024-06-20 10:52 | XMS_ITS | CONTINUITY OF CARE DOCUMENT ---
Author Name mumtaz pandya Address Unknown Organization [facility] Address [address] [place] [address] [address] [place] [address] Phone [phone] Care Team Providers Care Back Sewer Name Role Phone Leny MENCHACA, Eddie Avery Unavailable [phone] JOJO ARMSTRONG MD Unavailable [phone] JOJO ARMSTRONG MD Unavailable [phone] PROBLEMS Condition Status Date Provider Notes Cardiology examination active Eddie Charles Asthma active Eddie Michele MD Palpitations active Eddie Michele MD Uterine cancer active Eddie Michele MD Dyslipidemia active Eddie Michele MD Anemia active Eddie Michele MD HTN essential active Eddie Michele MD Near syncope active Eddie Michele MD Shortness of breath active Eddie Michele MD ENCOUNTERS Date Type Provider Location Encounter Diag nosis 8 - 5 In-person encounter Office Visit Eddie Michele MD [facility] Cardiology examination 7 - 7 In-person encounter Office Visit Eddie Michele MD [facility] 0 - 2 In-person encounter Office Visit Eddie Michele MD [facility] Shortness of breathNear syncopeHTN essentialAnemiaDyslipidemiaUterine cancerPalpitationsAsthma VITAL SIGNS Date Observation Value Provider Body Mass Index (Ratio) 37.27 kg/m2 Thor Ellison blood pressure, diastolic 94 mm[Hg] Li [facility] blood pressure, systolic 138 mm[Hg] Helen og oxygen saturation, oximetry 93 % Lauren Thompsons pulse rate 75 /min Lauren Meadows weight E&M 224 [lb_av] Lauren Thompsons blood pressure, cuff size regular Ta carine Thompsons blood pressure, diastolic 94 mm[Hg] Ta bitha Thompsons blood pressure, systolic 138 mm[Hg] Tab itha Thompsons respiratory rate E&M 12 /min Lauren Thompsons height E&M 65 [in_i] Lauren Thompsons Body Mass Index (Ratio) 36.44 kg/m2 Anabel zamorano Ganesh pulse rate 81 /min Dorie Sylvain blood pressure, diastolic 83 mm[Hg] An ivette Narayan blood pressure, systolic 195 mm[Hg] Any a Sylvain oxygen saturation, oximetry 94 % Dorie Sylvain weight E&M 219 [lb_av] Dorie Sylvain blood pressure, cuff size large An ivette Sylvain height E&M 65 [in_i] Dorie Sylvain Body Mass Index (Ratio) 34.94 kg/m2 Sunny Shin blood pressure, diastolic -1 mm[Hg] Julia [facility] blood pressure, systolic 136 mm[Hg] Helen [facility]Logic blood pressure, diastolic 83 mm[Hg] Ca therine Ryan blood pressure, systolic 136 mm[Hg] Cat herine [place] blood pressure, cuff size large Ca therine [place] oxygen saturation, oximetry 93 % Fatimah Ryan respiratory rate E&M 18 /min Catheri ne [place] pulse rate 68 /min Fatimah Ryan weight E&M 210 [lb_av] Fatimah Ryan height E&M 65 [in_i] Fatimah Davis ALLERGIES Allergy Name Onset Date Reaction Criticality Status ATORVASTATIN Muscle cramps Muscle cramps High C riticality active OPIOIDS High Criticality active MORPHINE High Criticality active SULFA High Criticality active RESULTS Date Observation Value Provider Reference Range Interpretation Location hemoglobin A1C, blood, as % of total hemoglobin 5.6 % OF TOTAL HGB [facility] <5.7 Normal C-reactive protein, by highly sensitive test 4.7 mg/L [facility] High prothrombin time (patient) 10.4 s [facility] 9.0-11.5 Normal international normalized ratio (INR) 1.0 [facility] Normal basophils as percent of blood leukocytes 0.9 % [facility] Normal eosinophils as percent of blood leukocytes 4.0 % [facility] Normal monocyte count, blood 7.7 % [facility] Normal lymphocyte count, blood 31.4 % [facility] Normal neutrophils as percent of blood leukocytes 56 % [facility] Normal basophils, absolute, manual 72 cells/mcL [facility] 0-200 Normal eosinophils, absolute, manual 320 cells/mcL [facility] 15-500 Normal monocytes, absolute, manual 616 cells/mcL [facility] 200-950 Normal lymphocytes, absolute 2512 CELLS/UL [facility] 850-3900 Normal Absolute Neutrophil count 4480 cells/mcL [facility] 7119-7069 Normal mean platelet volume 10.4 fL [facility] 7.5-12.5 Normal platelet count 460 THOUSAND/UL [facility] 140-400 High red blood cell distribution width 16.2 % [facility] 11.0-15.0 High mean corpuscular hemoglobin concentration, RBC 29.1 G/DL [facility] 32.0-36.0 Low mean corpuscular hemoglobin, RBC 21.1 pg [facility] 27.0-33.0 Low mean corpuscular volume, RBC 72.5 fL [facility] 80.0-100.0 Low hematocrit, blood 29.2 % [facility] 35.0-45.0 Low hemoglobin electrophoresis, blood 8.5 [facility] 11.7-15.5 Low erythrocyte (RBC) count 4.03 MILLION/UL [facility] 3.80-5.10 Normal leukocyte (white blood cells) count, blood 8.0 THOUSAND/UL [facility] 3.8-10.8 Normal calcium, serum 9.8 mg/dL [facility] 8.6-10.4 Normal carbon dioxide, venous blood 26 mmol/L [facility] 20-32 Normal chloride, serum 105 mmol/L [facility] 98-110 Normal potassium, serum 4.0 mmol/L [facility] 3.5-5.3 Normal sodium, serum 140 mmol/L [facility] 135-146 Normal urea nitrogen/creatini ne ratio, serum NOT APPLICABLE (calc) [facility] 6-22 creatinine, serum 0.73 mg/dL [facility] 0.50-1.05 Normal urea nitrogen, blood 12 mg/dL [facility] 7-25 Normal blood glucose, random 91 mg/dL [facility] 65-99 Normal NT-pro BNP 52 [facility] <125 Normal microalbumin/crea tinine ratio, urine 4 MCG/MG CREAT [facility] <30 Normal microalbumin/tota l urine volume 6 mg/L [facility] Units converted. See lab report for original value. Normal creatinine, random, urine 147 mg/dL [facility] 20-275 Normal cholesterol, non-HDL, total 209 MG/DL (CALC) [facility] <130 High cholesterol/HDL ratio, serum, percent 6.8 (calc) [facility] <5.0 High LDL cholesterol, serum 174 MG/DL (CALC) [facility] High triglyceride, serum, fasting 191 mg/dL [facility] <150 High HDL cholesterol, serum 36 mg/dL [facility] > OR = 50 Low cholesterol, serum 245 mg/dL [facility] <200 High HISTORY OF MEDICATION USE Medication Status Instructions Dates Provider Indications Com ments Zetia 10 mg tablet active TAKE 1 TABLET BY MOUTH EVERY DAY WITH ATORVASTATIN Eddie Michele MD Jardiance 10 mg tablet completed Take 1 ta blet by mouth once a day - Lauren Meadows lorazepam 1 mg tablet completed - Lauren Meadows hydrochlorothiazide 25 mg tablet completed - Lauren Meadows metoprolol tartrate 50 mg tablet completed - Lauren Meadows losartan 100 mg tablet active Gi edgar Michele MD ergocalciferol (vitamin D2) 1,250 mcg (50,000 unit) capsule completed - Lauren Meadows fenofibrate micronized 134 mg capsule completed - Lauren Meadows pravastatin 40 mg tablet completed - Lauren Meadows SOCIAL HISTORY Date Observation Value Provider smoking status Never smoker Angel Woodruff [facility] social history E&M S moking History: Pia mendez has never smoked. Ana Cristina Andersen social history reviewed E&M revi ewed - no changes required Ana Cristina Andersen smoking status Never smoker Dorie Narayan number of grandchildren Eddie Michele MD social history E&M S moking History: Pia mendez has never smoked. Eddie Michele MD social history reviewed E&M revi ewed - no changes required Eddie Michele MD smoking status Never smoker Fatimah Chayo saldaña INSURANCE PROVIDERS Payer name Policy type / Coverage type Abena red republican ID [facility] COMPLETE CARE [id number] (PPO C-SNP) [place] insurance [employer] [id number] [facility] AND [facility] Medicaid 1 [id number] ADVANCE DIRECTIVES Name Date DISCUSSED - NO DECISION MADE TREATMENT PLAN Date Name Performer [id number],C,W ill start Jardiance 10 mg daily. BP today: 195/83 P rior BP: 136/-1 (12/30/2020) Her updated medication list for this problem includes: Hydrochlorothiazide 25 Mg Tablet (Hydrochlorothiazide) Metoprolol Tartrate 50 Mg Tablet (Metoprolol tartrate) Losartan 100 Mg Tablet (Losartan) Ana Cristina Andersen [id number],W,E cho showed normal EF with diastolic dysfunction (2020). Recent echo (July 2022) showed a mild LV dilatation, normal EF, mild to mod TR, and moderate pulmonary hypertension. I do not have the results of ProBNP. Pt states that she was told it was abnormal. CT test was performed; results pending. She is still having SOB with minimal exertion consistant with HFpEF. Will schedule right and left heart cath. Her updated medication list for this problem includes: Hydrochlorothiazide 25 Mg Tablet (Hydrochlorothiazide) Metoprolol Tartrate 50 Mg Tablet (Metoprolol tartrate) Losartan 100 Mg Tablet (Losartan) Ana Cristina Andersen [id number],C, H er updated medication list for this problem includes: Fenofibrate Micronized 134 Mg Capsule (Fenofibrate micronized) Pravastatin 40 Mg Tablet (Pravastatin) Ana Cristina Andersen [id number],W, O btain telesentry. Ji Givensyuli [id number],S, C ontinues on pravastatin and fenofibrate. Ji Givensyuli [id number],S, R ecent admission for pneumoina. Since then c/o SOB with minimal exertion, palpitations with rapid heart beats, dizziness, and near syncope. No CP. No prior cardiac hx. Will obtain echo, telesentry, CXR, and pBNP. Check COVID antibodies as well. Ji Shin [id number],S, B P today: 136/83 Her updated medication list for this problem includes: Hydrochlorothiazide 25 Mg Tablet (Hydrochlorothiazide) Metoprolol Tartrate 50 Mg Tablet (Metoprolol tartrate) Losartan 100 Mg Tablet (Losartan) Eddie Michele MD Cardiology:undergoing hematology workup Angel Ellison Cardiology:Continues to have severe SOB. Cariac cath was cancelled last year. We will schedule L+R heart cath. Tried jardiance last year without imprvoement of sx. T he following medications were removed from the medication list: Hydrochlorothiazide 25 Mg Tablet (Hydrochlorothiazide) Metoprolol Tartrate 50 Mg Tablet (Metoprolol tartrate) Her updated medication list for this problem includes: Losartan 100 Mg Tablet (Losartan) Angel Ellison Cardiology: T mitchell following medications were removed from the medication list: Pravastatin 40 Mg Tablet (Pravastatin) Fenofibrate Micronized 134 Mg Capsule (Fenofibrate micronized) & #13;Her updated medication list for this problem includes: Zetia 10 Mg Tablet (Ezetimibe) ..... Take 1 tablet by mouth every day with atorvastatin Angel Ellison Cardiology: BP today: 138/94 P rior BP: 195/83 (07/27/2022) The following medications were removed from the medication list: Hydrochlorothiazide 25 Mg Tablet (Hydrochlorothiazide) Metoprolol Tartrate 50 Mg Tablet (Metoprolol tartrate) Her updated medication list for this problem includes: Losartan 100 Mg Tablet (Losartan) This visit has been a part of the consistent, comprehensive, and ongoing management of the chronic medical condition(s) listed above for the patient. Angel Ellison Cardiology Angel Ellison Cardiology:Will star t Jardiance 10 mg daily. BP today: 195/83 P rior BP: 136/-1 (12/30/2020) Her updated medication list for this problem includes: Hydrochlorothiazide 25 Mg Tablet (Hydrochlorothiazide) Metoprolol Tartrate 50 Mg Tablet (Metoprolol tartrate) Losartan 100 Mg Tablet (Losartan) Ana Cristina Andersen Cardiology:Echo show ed normal EF with diastolic dysfunction (2020). Recent echo (July 2022) showed a mild LV dilatation, normal EF, mild to mod TR, and moderate pulmonary hypertension. I do not have the results of ProBNP. Pt states that she was told it was abnormal. CT test was performed; results pending. She is still having SOB with minimal exertion consistant with HFpEF. Will schedule right and left heart cath. Her updated medication list for this problem includes: Hydrochlorothiazide 25 Mg Tablet (Hydrochlorothiazide) Metoprolol Tartrate 50 Mg Tablet (Metoprolol tartrate) Losartan 100 Mg Tablet (Losartan) Ana Cristina Andersen Cardiology: H er updated medication list for this problem includes: Fenofibrate Micronized 134 Mg Capsule (Fenofibrate micronized) Pravastatin 40 Mg Tablet (Pravastatin) Ana Cristina Andersen Cardiology: O btain telesentry. Ji Aleida Cardiology: C ontinues on pravastatin and fenofibrate. Ji Shin Cardiology: R ecent admission for pneumoina. Since then c/o SOB with minimal exertion, palpitations with rapid heart beats, dizziness, and near syncope. No CP. No prior cardiac hx. Will obtain echo, telesentry, CXR, and pBNP. Check COVID antibodies as well. Ji Shin Cardiology: B P today: 136/83 Her updated medication list for this problem includes: Hydrochlorothiazide 25 Mg Tablet (Hydrochlorothiazide) Metoprolol Tartrate 50 Mg Tablet (Metoprolol tartrate) Losartan 100 Mg Tablet (Losartan) Eddie Michele MD Date Name PROTHROMBIN TIME WIT H INR LIPID PANEL CBC (INCLUDES DIFF/P LT) BASIC METABOLIC PANE L W/EGFR PROBNP, N TERMINAL PROTHROMBIN TIME WIT H INR CBC (INCLUDES DIFF/P LT) Lipoprotein (a) LIPID PANEL CRP, high sensitivit y PROBNP, N TERMINAL BASIC METABOLIC PANE L W/EGFR Microalb/Creatinine Urine, Random HEMOGLOBIN A1c BASIC METABOLIC PANE L W/EGFR Covid Antibody IgM ( LC) Covid Antibody IgA ( LC) CXR- PA/Lat PROBNP, N TERMINAL Monitor - Telemetry (Mobile Cardiac) Complete Echo HISTORY OF PROCEDURES Procedure Date Procedure Name Provider Procedure Notes S tatus Complex e/m visit add on Eddie Michele MD completed EKG Eddie Michele MD completed Event Monitor Eddie Michele MD complet ed EKG Eddie Michele MD completed
--- OUTSIDE RECORDS SUMMARY | 2024-06-20 10:52 | XMS_ITS | Encounter Summary ---
Author Organization [facility] Address 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
--- OUTSIDE RECORDS SUMMARY | 2024-06-20 10:52 | XMS_ITS | Clinical Summary ---
Author Organization [facility] Address [address] [place] [address] Care Team Providers Care Bail Agent Name Role Phone Maximo Arreguin MD Primary Care Prov ider Allergies Active Allergy Reactions Criticality Noted Date Comments Adhesive Rash Medium 09/25/2012 Welts from bandages Azithromycin Nausea only Low 12/30/2021 Back pain Codeine Anaphylaxis High Hydromorphone Anaphylaxis High Opioids - Morphine Analogues Anaphylaxis High Prochlorperazine Mental status changes Low Causes violence Sulfa (Sulfonamide Antibiotics) Headache Low Medications ubidecarenone (coenzyme Q10) 60 mg capsule Take by mouth Active vitamin C with bello hips 500 mg tablet Take 1 tablet/chew tab (500 mg total) by mouth daily 12/01/2022 Active FeroSuL 325 mg (65 mg iron) tablet Take 1 tablet (325 mg total) by mouth 2 (two) times a day Active cycloSPORINE (Cequa) 0.09 % dropperette 1 drop 2 (two) times a day Active losartan (COZAAR) 100 mg tablet 01/02/2023 Active LORazepam (ATIVAN) 0.5 mg tablet Take 1 tablet (0.5 mg total) by mouth every 6 (six) hours as needed for anxiety Active Active Problems Problem Noted Date Diagnosed Date Chronic anemia 11/07/2023 Paraesophageal hernia 02/23/2023 Epigastric hernia 12/13/2022 Assessment & Plan (12/13/2022 10:50 AM CDT): We have discussed that the bulge she is experiencing has no relationship to the hiatal hernia. On the scan she has an epigastric hernia. We have discussed primarily close this at the time of the surgery. Malignant neoplasm of uterus 12/12/2012 Gastroesophageal reflux disease 12/12/2012 Assessment & Plan (12/13/2022 10:51 AM CDT): It has been over 15 years since her last EGD. This needs to be repeated to ensure no signs of Benitez's esophagus or other intra gastric pathology. She also needs manometry and pH testing in preparation for surgery. We have also given her a 2 week preoperative diet that she will start to help shrink down the size of her liver for surgery. We have discussed postoperative restrictions and hospital length of stay. We have discussed that the pulmonary issues are not always fixed with the correction of the hiatal hernia but the reflux will go away. She is in understanding of the plan. Hyperlipidemia 12/12/2012 Hypertension 12/12/2012 Surgical History Surgery Date Site/Laterality Comments GALLBLADDER SURGERY Gallbladder Surgery - (Added by TW Conv) HYSTERECTOMY UPPER GASTROINTESTINAL ENDOSCOPY Medical History Medical History Date Comments Cancer (HCC) uterine Hiatal hernia Abdominal wall hernia PONV (postoperative nausea and vomiting) Hypertension Anxiety Sleep apnea Family History Medical History Relation Name Comments Diabetes Father Diabetes Mellit us - (Added by TW Conv) Ovarian cancer Other 1 Carcinoma Of The Ovary - (Added by TW Conv) Breast cancer Other 2 Breast Cancer - (Added by TW Conv) Uterine cancer Other 3 Uterine Cance r - (Added by TW Conv) Diabetes Sister 1 Diabetes Mellit us - (Added by TW Conv) Obesity Sister 2 Obesity - (Adde d by [employer] Conv) Relation Name Status Comments Father Mother Alive Other 1 Other 2 Other 3 Sister 1 Sister 2 Social History Tobacco Use Types Packs/Day Years Used Date Smoking Tobacco: Never Smokeless Tobacco: Never Tobacco Cessation:Counseling Given: Not Answered AUDIT-C Answer Date Recorded Q1: How often do you have a drink containing alcohol? Never 11/10/2023 Q2: How many drinks containi ng alcohol do you have on a typical day when you are drinking? Patient does not drink Q3: How often do you have si x or more drinks on one occasion? 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 Gender Identity Not on file Sexual Orientation Not on file Obstetrics History Last Filed Vital Signs Vital Sign Reading Time Taken Comments Blood Pressure 144/78 12/13/2022 10:09 AM CDT Pulse 74 12/13/2022 10:09 AM CDT Temperature 36.1 C (96.9 F) 12/13/2022 10:09 AM CDT Respiratory Rate 17 12/30/2021 6:15 PM JUNIOR ACCOUNT MANAGER Oxygen Saturation 91% 12/13/2022 10:09 AM CDT Inhaled Oxygen Concentration - - Weight 97.7 kg (215 lb 4.8 oz) 12/13/2022 10:09 AM CDT Height 165.1 cm (5' 5 ) 12/13/2022 10:09 AM CDT Body Mass Index 35.83 12/13/2022 10:09 AM CDT Plan of Treatment Health Maintenance Due Date Last Done Comments Breast Cancer Screening-Mammogram 1957 Colon Cancer Screening-Colonoscopy 1955 Depression Screening 1957 Fall Risk Assessment 1955 Hepatitis C Screening 1955 Osteoporosis Screening-Bone Density Scan 1957 DTaP/Tdap/Td Vaccine (1 - Tdap) 1968 Hepatitis B Screening 12/06/1975 Pneumococcal vaccine 65+ (1 of 2 - PCV) 1976 Zoster Vaccine (1 of 2) 12/06/2007 Well Visit 65+ 2022 Influenza Vaccine (#1) 2023 [place] [address] [facility] MEDICARE ADVANTAGE Care Teams Bail Agent Relationship Specialty Start Date End Date Maximo Arreguin MD [address] [place] [address] PCP - General Family Medicine 11/08/23
--- OUTSIDE RECORDS SUMMARY | 2024-06-20 10:52 | XMS_ITS | Referral Summary ---
Author Organization [facility] Address [address] [place] [address] Care Team Providers Care Tromper Name Role Phone Maximo Arreguin MD Primary [...] of the plan. 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 Gender Identity Not on file Sexual Orientation Not on file Last Filed Vital Signs Vital Sign Reading Time Taken Comments Blood Pressure 144/78 12/13/2022 10:09 AM CDT Pulse 74 12/13/2022 10:09 AM CDT Temperature 36.1 C (96.9 F) 12/13/2022 10:09 AM CDT Respiratory Rate 17 12/30/2021 6:15 PM RADIOTELEGRAPHIST Oxygen Saturation 91% 12/13/2022 10:09 AM CDT Inhaled Oxygen Concentration - - Weight 97.7 kg (215 lb 4.8 oz) 12/13/2022 10:09 AM CDT Height 165.1 cm (5' 5 ) 12/13/2022 10:09 AM CDT Body Mass Index 35.83 12/13/2022 10:09 AM CDT Plan of Treatment Not on file Insurance [employer] [facility] MEDICARE ADVANTAGE [facility] Address: [address] [address] [place] [address] Care Teams Tromper Relationship Specialty Start Date End Date Maximo Arreguin MD [address] [place] [address] PCP - General Family Medicine 11/08/23
--- OUTSIDE RECORDS SUMMARY | 2024-06-20 10:52 | XMS_ITS | Patient Health Record ---
Author Organization [facility] Address [address] [place] [address] Care Team Providers Care Pet Training Instructor Name Role Phone BLAKE PETERS MD Unavailable Unavailable Mega Cartwright Unavailable [phone] Reason For Referral No Information Encounters Encounter Location Date Provider Diagnosis [facility] [address] [place] [address] 06/13/2024 Mega Peters [facility] [address] [place] [address] 06/13/2024 Mega Cartwright Plan Of Treatment No Information Insurance Providers Payer Name Payer Address Payer Phone Subscriber Number Group Number Insured Name Patient Relationship to Insured Coverage Start Date Coverage End Date [employer] H[employer]-POS [address] [address] [place] [address] [id number] ARIADNE GUADALUPE Self - patient is the insured
--- OUTSIDE RECORDS SUMMARY | 2024-06-20 10:52 | XMS_ITS | Clinical Summary ---
Author Organization [facility] Address [address] [place] [address] Care Team Providers Care Salvage Inspector Name Role Phone Maximo Arreguin MD Primary Care Provider [phone] Allergies Active Allergy Reactions Criticality Noted Date Comments Codeine Nausea and Vomiting 09/25/2012 Hydromorphone Nausea and Vomiting Medium 09/26/2012 Morphine GI Upset Medium 09/25/2012 Stomach goes into complete spasms Prochlorperazine Other (see comment) 09/25/2012 Makes her go crazy Sulfa Antibiotics Headache 10/28/2020 Tape Rash Low 09/25/2012 Welts from bandages Hydrocodone-Acetaminophen Nausea and Vomiting,Syncope 11/11/2020 Can't take any opiods Medications losartan 50 MG tabletIndicatio ns:Hypertension Take by mouth nightly. Indications: High Blood Pressure Disorder Active metoprolol succinate ER 50 MG 24 hr tabletIndicatio ns:Hypertension Take by mouth nightly. Indications: High Blood Pressure Disorder Active esomeprazole 20 MG capsuleIndicati ons:Reflux Esophagitis Take 20 mg by mouth every morning before breakfast. Indications: Lower Esophagus Inflammation From Backflow of Stomach Acid Active albuterol sulfate HFA (VENTOLIN HFA) 108 (90 Base) MCG/ACT inhaler Inhale 2 puffs into the lungs every 4 (four) hours as needed. Active Cholecalciferol 50 MCG (1999 UT) Tab Take by mouth daily. Active gabapentin 300 MG capsule Take 200 mg by mouth nightly. Active LORazepam 1 MG tablet Take 1 mg by mouth daily as needed. 1 Active Active Problems No known active problems Family History Medical History Relation Comments Diabetes Father Relation Status Comments Father Alive Mother Alive Social History Tobacco Use Types Packs/Day Years Used Date Smoking Tobacco: Never Smokeless Tobacco: Never Alcohol Use Standard Drinks/Week Comments Not Currently 0 (1 standard drink = 0.6 oz pur e alcohol) Comments Unknown Sex and Gender Information Value Date Recorded Sex Assigned at Not on file Legal Sex Female 12:47 PM CDT Gender Identity Not on file Sexual Orientation Not on file Last Filed Vital Signs Vital Sign Reading Time Taken Comments Blood Pressure 130/56 11/16/2020 11:29 AM CDT Pulse 62 11/16/2020 11:29 AM CDT Temperature 36.3 C (97.3 F) 11/16/2020 10:21 AM CDT Respiratory Rate 16 11/16/2020 11:29 AM CDT Oxygen Saturation 94% 11/16/2020 11:29 AM CDT Inhaled Oxygen Concentration - - Weight 98.4 kg (217 lb) 11/16/2020 8:11 AM CDT Height 165.1 cm (5' 5 ) 11/16/2020 8:11 AM CDT Body Mass Index 36.11 11/16/2020 8:11 AM CDT Plan of Treatment Health Maintenance Due Date Last Done Comments Colorectal Cancer Screening Colonoscopy (10 Years) 1957 Hepatitis C 12/06/1975 DTaP, Tdap and Td Vaccines ( 1 - Tdap) 1976 Mammogram Screening 1997 Pneumococcal Vaccine: 50+ Ye ars (1 of 1 - PCV) 12/06/2007 Zoster Vaccines (1 of 2) 12/06/2007 Dexa Scan (General) 2022 COVID-19 Vaccine ( - 2023-2 5 season) 2023 RSV Immunization or 60+ Years (1 - 1-dose 75+ series) 2032 Meningococcal B Vaccine Aged Out No l onger eligible based on patient's age to complete this topic Meningococcal Vaccine Aged Out No alona chris eligible based on patient's age to complete this topic RSV Immunizations Under 20 Months Aged Out No longer eligible based on patient's age to complete this topic Insurance [facility] C/O PROVID[employer] SERVICES TANJA ZARAGOZA [id number] Care Teams Salvage Inspector Relationship Specialty Start Date End Date Maximo Arreguin MD [address] [address] PCP - General FAMILY PRACTICE 11/16/20
--- OUTSIDE RECORDS SUMMARY | 2024-06-20 10:52 | XMS_ITS | Data Portability ---
Author Organization [place] [employer], Main Office Address [address] [place] [address] Assessment Encounter Date Assessment Date Assessment LastModified by Organization Details LastModified Time 07/13/2022 07/13/2022 Assessment: Cough Dyspnea Bibasilar atelectasis Hiatal hernia with YUVAL Plan: The following were reviewed and explained to the patient: Chest CT 07/19/06 bibasilar atelectasis Chest 2 views 01/20/13 bibasilar atelectasis Chest 2 views 06/27/17 moderate hiatal hernia, bibasilar atelectasis Chest 2 views 08/20/20 moderate hiatal hernia, bibasilar atelectasis Chest 2 views 04/14/22 moderate hiatal hernia, bibasilar atelectasis Chest 2 views 07/07/22 large hiatal hernia, bibasilar atelectasis Lab data 01/11/21 elevated BNP PFT 01/11/21 nl FEV1/FVC, FEV1 1.88 L (76%), TLC 3.90 L (77%), DLCO 7%, DLCO/VA 13% Incentive spirometer x 5 minutes every 2 hours while awake to reverse and prevent further atelectasis. Cough/Dyspnea workup will be done as follows: 2-D echocardiogram Chest HRCT Methacholine challenge testing Advised to continue not to smoke. Continue generic Ventolin HFA as needed for now. The patient does not know how to accurately administer the inhaler. Today, the patient was shown how to take this medication. The proper technique for delivering this medication was instructed. The patient expressed a clear understanding and demonstrated back how to use this medication. Without the proper technique, the patient will not reap the benefits of the treatment as the contents of the inhaler will not reach the lower airways as intended to be. Adherence to therapy is advocated. Nonadherence may lead to treatment failure, further progression of the condition, and other complications. Hospitals admissions are often the result of individuals not taking prescription medications accurately. Alternatively, greater adherence to medication regimens have shown to lower rates of hospitalization and decrease total medical costs in patients with chronic medical conditions. Advocated influenza vaccination annually and pneumonia vaccination in 2022. Advocated weight loss through diet and exercise. Patient's ideal body weight according to height and gender is up to 135 lbs. Encouraged patient to adjust caloric intake to maintain/achieve ideal body weight, emphasizing on fruits, vegetables, whole grains, and fat-free or low-fat products. These include lean meats, poultry, fish, beans, eggs, and nuts and foods that are low in saturated fats, trans-fats, cholesterol, salt (sodium), and glycemic index. Stressed the importance of regular exercise up to the patient's capacity limits. In this case, we recommend regular (4 x a week or more) walking or other light activity. Patient to monitor BP daily and bring records to PCP for further management. Follow-up: 1 week after testing Not available 07/13/2022 13:11:19 09/19/2022 09/19/2022 Assessment: Right thyroid nodule Hypertension MAVIS Hypventilation Pulmonary hypertension RVSP 54 mmHg Bibasilar atelectasis Hiatal hernia with YUVAL PLMD Plan: The following were reviewed and explained to the patient: Chest 2 views 01/20/13 bibasilar atelectasis Chest 2 views 06/27/17 moderate hiatal hernia, bibasilar atelectasis Chest 2 views 08/20/20 moderate hiatal hernia, bibasilar atelectasis Chest 2 views 04/14/22 moderate hiatal hernia, bibasilar atelectasis Chest 2 views 07/07/22 large hiatal hernia, bibasilar atelectasis Chest CT 07/19/[address] 07/21/22 dependent atelectasis, 8 mm right thyroid nodule, bilateral mild GGO, prominent pulmonary vasculature Lab data 01/11/21 elevated BNP PFT 01/11/21 nl FEV1/FVC, FEV1 1.88 L (76%), TLC 3.90 L (77%), DLCO 7%, DLCO/VA 13% Methacholine challenge testing 09/19/22 (-) methacholine challenge up to level 5 2-D echocardiogram 07/21/22 EF 60.5%, mild LVE, mild RVE, mod TR, RVSP 54 mmHg I spoke with Dr. Benítez regarding the right thyroid nodule. Chest CT is sent to Dr. Benítez via fax number is . Thyroid ultrasound will be ordered by Dr. Benítez. Continue incentive spirometer x 5 minutes every 2 hours while awake to reverse and prevent further atelectasis. There are five different groups of pulmonary hypertension (PH) based on different causes. These groups are defined by the World Health Organization (WHO) and are referred to as PH WHO Groups. Group 1: Pulmonary Arterial Hypertension (PAH) Group 2: Pulmonary Hypertension Due to Left Heart Disease Group 3: Pulmonary Hypertension Due to Lung Disease Group 4: Pulmonary Hypertension Due to Chronic Blood Clots in the Lungs Group 5: Pulmonary Hypertension Due to Unknown Causes Pulmonary hypertension (PH) workup will be done as follows: Sleep studies to evaluate for sleep apnea. Check Scl-70, BONITA, ANCA, rheumatoid factor, HIV serologies. She will make a follow up visit with her panel machine setter Dr. Michele for the pulmonary hypertension. A cardiac catheterization is in the planning. Advised to continue not to smoke. Continue generic Ventolin HFA as needed for bronchitic episode. The patient does not know how to accurately administer the inhaler. Today, the patient was shown how to take this medication. The proper technique for delivering this medication was instructed. The patient expressed a clear understanding and demonstrated back how to use this medication. Without the proper technique, the patient will not reap the benefits of the treatment as the contents of the inhaler will not reach the lower airways as intended to be. Adherence to therapy is advocated. Nonadherence may lead to treatment failure, further progression of the condition, and other complications. Hospitals admissions are often the result of individuals not taking prescription medications accurately. Alternatively, greater adherence to medication regimens have shown to lower rates of hospitalization and decrease total medical costs in patients with chronic medical conditions. Advocated influenza vaccination annually and pneumonia vaccination in 2022. Advocated weight loss through diet and exercise. Patient's ideal body weight according to height and gender is up to 135 lbs. Encouraged patient to adjust caloric intake to maintain/achieve ideal body weight, emphasizing on fruits, vegetables, whole grains, and fat-free or low-fat products. These include lean meats, poultry, fish, beans, eggs, and nuts and foods that are low in saturated fats, trans-fats, cholesterol, salt (sodium), and glycemic index. Stressed the importance of regular exercise up to the patient's capacity limits. In this case, we recommend regular (4 x a week or more) walking or other light activity. Patient to monitor BP daily and bring records to PCP for further management. Follow-up: 1 week after diagnostic sleep study Not available 09/19/2022 12:44:18 11/10/2022 11/10/2022 Assessment: Right thyroid nodule Early REM onset Severe OSAHS, AHI = 31 Pulmonary hypertension RVSP 54 mmHg Bibasilar atelectasis Hiatal hernia with YUVAL PLMD Plan: The following were reviewed and explained to the patient: Chest 2 views 01/20/13 bibasilar atelectasis Chest 2 views 06/27/17 moderate hiatal hernia, bibasilar atelectasis Chest 2 views 08/20/20 moderate hiatal hernia, bibasilar atelectasis Chest 2 views 04/14/22 moderate hiatal hernia, bibasilar atelectasis Chest 2 views 07/07/22 large hiatal hernia, bibasilar atelectasis Chest CT 07/19/[address] 07/21/22 dependent atelectasis, 8 mm right thyroid nodule, bilateral mild GGO, prominent pulmonary vasculature Lab data 01/11/21 elevated BNP Lab data 10/12/22 normal pulm HTN workup PFT 01/11/21 nl FEV1/FVC, FEV1 1.88 L (76%), TLC 3.90 L (77%), DLCO 7%, DLCO/VA 13% Methacholine challenge testing 09/19/22 (-) methacholine challenge up to level 5 2-D echocardiogram 07/21/22 EF 60.5%, mild LVE, mild RVE, mod TR, RVSP 54 mmHg [facility] split night sleep study 11/02/22 sleep onset = 29 minutes, REM onset = 78 minutes, AHI = 31, supine AHI = 34, REM AHI = 52, ResMed small AirFit P10 nasal pillows @ 10 cmH2O, PLMI = [address] Benítez regarding the right thyroid nodule. Thyroid ultrasound has been ordered by Dr. Benítez. Continue incentive spirometer x 5 minutes every 2 hours while awake to reverse and prevent further atelectasis. There are five different groups of pulmonary hypertension (PH) based on different causes. These groups are defined by the World Health Organization (WHO) and are referred to as PH WHO Groups. Group 1: Pulmonary Arterial Hypertension (PAH) Group 2: Pulmonary Hypertension Due to Left Heart Disease Group 3: Pulmonary Hypertension Due to Lung Disease Group 4: Pulmonary Hypertension Due to Chronic Blood Clots in the Lungs Group 5: Pulmonary Hypertension Due to Unknown Causes She will make a follow up visit with her panel machine setter Dr. Michele for the pulmonary hypertension. A cardiac catheterization is in the planning. Advised to continue not to smoke. Continue generic Ventolin HFA as needed for bronchitic episode. The patient does not know how to accurately administer the inhaler. Today, the patient was shown how to take this medication. The proper technique for delivering this medication was instructed. The patient expressed a clear understanding and demonstrated back how to use this medication. Without the proper technique, the patient will not reap the benefits of the treatment as the contents of the inhaler will not reach the lower airways as intended to be. Adherence to therapy is advocated. Nonadherence may lead to treatment failure, further progression of the condition, and other complications. Hospitals admissions are often the result of individuals not taking prescription medications accurately. Alternatively, greater adherence to medication regimens have shown to lower rates of hospitalization and decrease total medical costs in patients with chronic medical conditions. Elevation in periodic limb movement index may be contributed by anemia. Non-pharmacologic therapy options for periodic limb movement disorder include avoidance of aggravating drugs and substances, mental alerting activities, short daily hemodialysis for patients in renal failure, exercise, leg massage, stretching calf muscles, use of a weighted blanket and applied heat. Patient will cut down on caffeine intake. We will check BUN, Creatinine, Vitamin E, Vitamin B12, RBC folate, Iron, TIBC, Ferritin, ESR, Magnesium, Hgb and Hct levels. Educated the patient on problems and solutions associated with positive airway pressure (PAP) use. Difficulty tolerating pressure, mask leaks, intolerance of interface, nasal congestion, claustrophobic response, dry mouth, and unintentional mask removal during sleep were covered. Patient experiences nasal congestion. Patient will use nasal saline spray before starting PAP, use heated PAP humidifier, clean/air dry humidifier reservoir daily, use nasal steroid spray, use ipratropium bromide nasal spray if rhinitis/rhinorrhe a is present or obtain an oronasal/oral interface. ResMed Air Sense 11 auto set unit with heated humidifier, supplies, ResMed small AirFit P10 nasal pillows @ 10 cmH2O ordered. Further titration will be based on clinical response. Provided the patient with a list of local home care stores where positive airway pressure (PAP) units, accoutrement, and services are available. Home care store selection is based on patient's insurance carrier. Patient will setup an appointment with [facility] for supplies and pressure adjustments. A major predictor of success with use of PAP is follow-up with both the respiratory supplier and the treating physician. The respiratory supplier optimally will follow-up within two weeks after starting use while the treating physician optimally will follow-up within 90 days after starting therapy to assess adherence and effectiveness of treatment. The download results can show the treating physician information about adherence to treatment, residual AHI while on treatment and presence of large mask leakage. This information is especially helpful if the patient has residual sleepiness despite treatment. General information on sleep disordered breathing, evaluation of sleep disordered breathing, treatment with PAP therapy, and living with PAP therapy were covered. We discussed with the patient the impact of weight on: Sleep disordered breathing Hypertension Mixed hyperlipidemia Hiatal hernia YUVAL We discussed with the patient the benefit of PAP therapy on: Sleep disordered breathing Anxiety/Depression Headaches Rhinitis Atelectasis Hypertension YUVAL Educated the patient on sleep hygiene measures. Relaxing rituals to rest easy, understanding foods with positive and negative impact on sleep, creating a peaceful sleep environment, timing of exercise, using herbal sleep aids, and practicing sleep-friendly meditation were covered. To determine how much sleep is needed, the patient will assess where she falls on the spectrum, examine what lifestyle factors such as work schedules and stress are affecting the quality and quantity of sleep. In general, adults need 7-9 hours of sleep. Educated the patient regarding foods that promote sleep. These include but are not limited to cherries, bananas, toast, oatmeal, and warm milk. Educated the patient regarding foods and drinks to avoid before bedtime. These include but are not limited to aged cheese, chocolate, spicy foods, tomato-based sauces, soy, ginseng tea and processed meat. Advocated influenza vaccination annually and pneumonia vaccination [facility]. Advocated weight loss through diet and exercise. Patient's ideal body weight according to height and gender is up to 135 lbs. Encouraged patient to adjust caloric intake to maintain/achieve ideal body weight, emphasizing on fruits, vegetables, whole grains, and fat-free or low-fat products. These include lean meats, poultry, fish, beans, eggs, and nuts and foods that are low in saturated fats, trans-fats, cholesterol, salt (sodium), and glycemic index. Stressed the importance of regular exercise up to the patient's capacity limits. In this case, we recommend regular (4 x a week or more) walking or other light activity. Patient to monitor BP daily and bring records to PCP for further management. Follow-up: 3 weeks Not available 11/10/2022 10:32:19 12/01/2022 12/01/2022 Assessment: Right thyroid nodule Early REM onset Severe OSAHS, AHI = 31 Pulmonary hypertension RVSP 54 mmHg Bibasilar atelectasis Hiatal hernia with YUVAL Iron deficiency anemia PLMD Plan: The following were reviewed and explained to the patient: Chest 2 views 01/20/13 bibasilar atelectasis Chest 2 views 06/27/17 moderate hiatal hernia, bibasilar atelectasis Chest 2 views 08/20/20 moderate hiatal hernia, bibasilar atelectasis Chest 2 views 04/14/22 moderate hiatal hernia, bibasilar atelectasis Chest 2 views 07/07/22 large hiatal hernia, bibasilar atelectasis Chest CT 07/19/[address] 07/21/22 dependent atelectasis, 8 mm right thyroid nodule, bilateral mild GGO, prominent pulmonary vasculature Lab data 01/11/21 elevated BNP Lab data 10/12/22 normal pulm HTN workup PFT 01/11/21 nl FEV1/FVC, FEV1 1.88 L (76%), TLC 3.90 L (77%), DLCO 7%, DLCO/VA 13% Methacholine challenge testing 09/19/22 (-) methacholine challenge up to level 5 2-D echocardiogram 07/21/22 EF 60.5%, mild LVE, mild RVE, mod TR, RVSP 54 mmHg [facility] split night sleep study 11/02/22 sleep onset = 29 minutes, REM onset = 78 minutes, AHI = 31, supine AHI = 34, REM AHI = 52, ResMed small AirFit P10 nasal pillows @ 10 cmH2O, PLMI = 6 Hgb 11/11/20 11.1 gm% Hgb 11/10/22 7.4 gm% Hct 11/10/22 26.3% Ferritin 11/10/22 4 ng/mL ESR 11/10/22 52 mm/hr Continue incentive spirometer x 5 minutes every 2 hours while awake to reverse and prevent further atelectasis. There are five different groups of pulmonary hypertension (PH) based on different causes. These groups are defined by the World Health Organization (WHO) and are referred to as PH WHO Groups. Group 1: Pulmonary Arterial Hypertension (PAH) Group 2: Pulmonary Hypertension Due to Left Heart Disease Group 3: Pulmonary Hypertension Due to Lung Disease Group 4: Pulmonary Hypertension Due to Chronic Blood Clots in the Lungs Group 5: Pulmonary Hypertension Due to Unknown Causes She will make a follow up visit with her panel machine setter Dr. Michele for the pulmonary hypertension. A cardiac catheterization is in the planning. Advised to continue not to smoke. Continue generic Ventolin HFA as needed for bronchitic episode. The patient does not know how to accurately administer the inhaler. Today, the patient was shown how to take this medication. The proper technique for delivering this medication was instructed. The patient expressed a clear understanding and demonstrated back how to use this medication. Without the proper technique, the patient will not reap the benefits of the treatment as the contents of the inhaler will not reach the lower airways as intended to be. Adherence to therapy is advocated. Nonadherence may lead to treatment failure, further progression of the condition, and other complications. Hospitals admissions are often the result of individuals not taking prescription medications accurately. Alternatively, greater adherence to medication regimens have shown to lower rates of hospitalization and decrease total medical costs in patients with chronic medical conditions. Elevation in periodic limb movement index may be contributed by anemia. Non-pharmacologic therapy options for periodic limb movement disorder include avoidance of aggravating drugs and substances, mental alerting activities, short daily hemodialysis for patients in renal failure, exercise, leg massage, stretching calf muscles, use of a weighted blanket and applied heat. Patient will cut down on caffeine intake. BUN, Creatinine, Vitamin E, Vitamin B12, RBC folate, Iron, TIBC, ESR, Magnesium are within normal limits. Patient will take FeSO4 325 mg + Vit C 500 mg daily to keep the ferritin > 75 ng/ml. Check Hgb, Hct and ferritin. We will hold off on dopaminergic therapy for now. I spoke with her PCP Dr. Benítez regarding her critical Hgb/Hct values the day of 11/10/22. He instructed the patient to proceed to the ER. She went to Urgent Care instead and was given a course of antibiotics for pneumonia. She will contact Dr. Benítez's office for follow up [facility]. Educated the patient on problems and solutions associated with positive airway pressure (PAP) use. Difficulty tolerating pressure, mask leaks, intolerance of interface, nasal congestion, claustrophobic response, dry mouth, and unintentional mask removal during sleep were covered. Patient experiences nasal congestion. Patient will use nasal saline spray before starting PAP, use heated PAP humidifier, clean/air dry humidifier reservoir daily, use nasal steroid spray, use ipratropium bromide nasal spray if rhinitis/rhinorrhe a is present or obtain an oronasal/oral interface. ResMed Air Sense 11 auto set unit with heated humidifier, supplies, ResMed small AirFit P10 nasal pillows @ 10 cmH2O ordered. Further titration will be based on clinical response. Provided the patient with a list of local home care stores where positive airway pressure (PAP) units, accoutrement, and services are available. Home care store selection is based on patient's insurance carrier. Patient will setup an appointment with [facility] for supplies and pressure adjustments. A major predictor of success with use of PAP is follow-up with both the respiratory supplier and the treating physician. The respiratory supplier optimally will follow-up within two weeks after starting use while the treating physician optimally will follow-up within 90 days after starting therapy to assess adherence and effectiveness of treatment. The download results can show the treating physician information about adherence to treatment, residual AHI while on treatment and presence of large mask leakage. This information is especially helpful if the patient has residual sleepiness despite treatment. General information on sleep disordered breathing, evaluation of sleep disordered breathing, treatment with PAP therapy, and living with PAP therapy were covered. We discussed with the patient the impact of weight on: Sleep disordered breathing Hypertension Mixed hyperlipidemia Hiatal hernia YUVAL We discussed with the patient the benefit of PAP therapy on: Sleep disordered breathing Anxiety/Depression Headaches Rhinitis Atelectasis Hypertension YUVAL Educated the patient on sleep hygiene measures. Relaxing rituals to rest easy, understanding foods with positive and negative impact on sleep, creating a peaceful sleep environment, timing of exercise, using herbal sleep aids, and practicing sleep-friendly meditation were covered. To determine how much sleep is needed, the patient will assess where she falls on the spectrum, examine what lifestyle factors such as work schedules and stress are affecting the quality and quantity of sleep. In general, adults need 7-9 hours of sleep. Educated the patient regarding foods that promote sleep. These include but are not limited to cherries, bananas, toast, oatmeal, and warm milk. Educated the patient regarding foods and drinks to avoid before bedtime. These include but are not limited to aged cheese, chocolate, spicy foods, tomato-based sauces, soy, ginseng tea and processed meat. Advocated influenza vaccination annually and pneumonia vaccination [facility]. Advocated weight loss through diet and exercise. Patient's ideal body weight according to height and gender is up to 135 lbs. Encouraged patient to adjust caloric intake to maintain/achieve ideal body weight, emphasizing on fruits, vegetables, whole grains, and fat-free or low-fat products. These include lean meats, poultry, fish, beans, eggs, and nuts and foods that are low in saturated fats, trans-fats, cholesterol, salt (sodium), and glycemic index. Stressed the importance of regular exercise up to the patient's capacity limits. In this case, we recommend regular (4 x a week or more) walking or other light activity. Patient to monitor BP daily and bring records to PCP for further management. Follow-up: 3 months, February 2023 [email or web address] Not available 12/01/2022 11:09:28 02/27/2023 02/27/2023 Assessment: Right thyroid nodule Early REM onset Severe OSAHS, AHI = 31 Pulmonary hypertension RVSP 54 mmHg Bibasilar atelectasis Hiatal hernia with YUVAL Iron deficiency anemia PLMD Plan: The following were reviewed and explained to the patient: Chest 2 views 01/20/13 bibasilar atelectasis Chest 2 views 06/27/17 moderate hiatal hernia, bibasilar atelectasis Chest 2 views 08/20/20 moderate hiatal hernia, bibasilar atelectasis Chest 2 views 04/14/22 moderate hiatal hernia, bibasilar atelectasis Chest 2 views 07/07/22 large hiatal hernia, bibasilar atelectasis Chest CT 07/19/[address] 07/21/22 dependent atelectasis, 8 mm right thyroid nodule, bilateral mild GGO, prominent pulmonary vasculature Lab data 01/11/21 elevated BNP Lab data 10/12/22 normal pulm HTN workup PFT 01/11/21 nl FEV1/FVC, FEV1 1.88 L (76%), TLC 3.90 L (77%), DLCO 7%, DLCO/VA 13% Methacholine challenge testing 09/19/22 (-) methacholine challenge up to level 5 2-D echocardiogram 07/21/22 EF 60.5%, mild LVE, mild RVE, mod TR, RVSP 54 mmHg [facility] split night sleep study 11/02/22 sleep onset = 29 minutes, REM onset = 78 minutes, AHI = 31, supine AHI = 34, REM AHI = 52, ResMed small AirFit P10 nasal pillows @ 10 cmH2O, PLMI = 6 Hgb 11/11/20 11.1 gm% Hgb 11/10/22 7.4 gm% Hgb 02/27/23 6.7 gm% Hct 11/10/22 26.3% Hct 02/27/23 25% Ferritin 11/10/22 4 ng/mL Ferritin 02/27/23 4 ng/mL ESR 11/10/22 52 mm/hr Continue incentive spirometer x 5 minutes every 2 hours while awake to reverse and prevent further atelectasis. There are five different groups of pulmonary hypertension (PH) based on different causes. These groups are defined by the World Health Organization (WHO) and are referred to as PH WHO Groups. Group 1: Pulmonary Arterial Hypertension (PAH) Group 2: Pulmonary Hypertension Due to Left Heart Disease Group 3: Pulmonary Hypertension Due to Lung Disease Group 4: Pulmonary Hypertension Due to Chronic Blood Clots in the Lungs Group 5: Pulmonary Hypertension Due to Unknown Causes She will make a follow up visit with her panel machine setter Dr. Michele for the pulmonary hypertension. A cardiac catheterization is in the planning. Advised to continue not to smoke. Continue generic Ventolin HFA as needed for bronchitic episode. The patient does not know how to accurately administer the inhaler. Today, the patient was shown how to take this medication. The proper technique for delivering this medication was instructed. The patient expressed a clear understanding and demonstrated back how to use this medication. Without the proper technique, the patient will not reap the benefits of the treatment as the contents of the inhaler will not reach the lower airways as intended to be. Adherence to therapy is advocated. Nonadherence may lead to treatment failure, further progression of the condition, and other complications. Hospitals admissions are often the result of individuals not taking prescription medications accurately. Alternatively, greater adherence to medication regimens have shown to lower rates of hospitalization and decrease total medical costs in patients with chronic medical conditions. Elevation in periodic limb movement index may be contributed by anemia. Non-pharmacologic therapy options for periodic limb movement disorder include avoidance of aggravating drugs and substances, mental alerting activities, short daily hemodialysis for patients in renal failure, exercise, leg massage, stretching calf muscles, use of a weighted blanket and applied heat. Patient will cut down on caffeine intake. BUN, Creatinine, Vitamin E, Vitamin B12, RBC folate, Iron, TIBC, ESR, Magnesium are within normal limits. Patient will continue FeSO4 325 mg + Vit C 500 mg but increase from daily to twice daily to keep the ferritin > 75 ng/ml. The patient will be referred to entry level lab technician Dr. Sean Rendon for iron infusion +/- blood transfusion. Blood transfusion may be considered: 1. for patients with active bleeding who are hemodynamically unstable, 2. for patients with critical anemia (Hb level <7 gm%), 3. in acute myocardial ischemia, 4. if all other treatments fail to correct the anemia. We will hold off on dopaminergic therapy for now. PAP compliance downloaded and interpreted x 20 minutes. Data reviewed and explained to the patient. Average apnea/hypopnea index (AHI) is 1.7. Patient used PAP > 4 hours 2% of the time. PAP is set at 10 cmH2O. PAP will be reset at 9 cmH2O per patient request. Oxygen supplementation: Patient is benefiting from PAP therapy. Encouraged patient to maintain PAP use more than 70% of the time. Statement of PAP use and benefits will be sent to the home care store. Educated the patient on problems and solutions associated with positive airway pressure (PAP) use. Difficulty tolerating pressure, mask leaks, intolerance of interface, nasal congestion, claustrophobic response, dry mouth, and unintentional mask removal during sleep were covered. Educated the patient on problems and solutions associated with positive airway pressure (PAP) use. Difficulty tolerating pressure, mask leaks, intolerance of interface, nasal congestion, claustrophobic response, dry mouth, and unintentional mask removal during sleep were covered. Patient has some difficulty tolerating pressure. Patient is advised to practice wearing PAP daily while awake, lower pressure with or without sleeping on sides, activate PAP ramp feature, have blower checked to make sure pressure is set as prescribed and return to sleep center for consideration of auto-adjusting PAP therapy. Patient experiences nasal congestion. Patient will use nasal saline spray before starting PAP, use heated PAP humidifier, clean/air dry humidifier reservoir daily, use nasal steroid spray, use ipratropium bromide nasal spray if rhinitis/rhinorrhe a is present or obtain an oronasal/oral interface. Patient has intolerance to interface. Patient will loosen mask slightly, ensure mask is situated properly, inspect and replace interface if worn out, use barrier such as moleskin or bandage for irritation at bridge of nose, have a temporary holiday from PAP, resize mask or obtain an oral interface. Provided the patient with a list of local home care stores where positive airway pressure (PAP) units, accoutrement, and services are available. Home care store selection is based on patient's insurance carrier. Patient will setup an appointment with [facility] for supplies and pressure adjustments. A major predictor of success with use of PAP is follow-up with both the respiratory supplier and the treating physician. The download results can show the treating physician information about adherence to treatment, residual AHI while on treatment and presence of large mask leakage. This information is especially helpful if the patient has residual sleepiness despite treatment. General information on sleep disordered breathing, evaluation of sleep disordered breathing, treatment with PAP therapy, and living with PAP therapy were covered. We discussed with the patient the impact of weight on: Sleep disordered breathing Hypertension Mixed hyperlipidemia Hiatal hernia YUVAL We discussed with the patient the benefit of PAP therapy on: Sleep disordered breathing Anxiety/Depression Headaches Rhinitis Atelectasis Hypertension YUVAL Educated the patient on sleep hygiene measures. Relaxing rituals to rest easy, understanding foods with positive and negative impact on sleep, creating a peaceful sleep environment, timing of exercise, using herbal sleep aids, and practicing sleep-friendly meditation were covered. To determine how much sleep is needed, the patient will assess where she falls on the spectrum, examine what lifestyle factors such as work schedules and stress are affecting the quality and quantity of sleep. In general, adults need 7-9 hours of sleep. Educated the patient regarding foods that promote sleep. These include but are not limited to cherries, bananas, toast, oatmeal, and warm milk. Educated the patient regarding foods and drinks to avoid before bedtime. These include but are not limited to aged cheese, chocolate, spicy foods, tomato-based sauces, soy, ginseng tea and processed meat. Advocated influenza vaccination annually and pneumonia vaccination ADRIA. Advocated weight loss through diet and exercise. Patient's ideal body weight according to height and gender is up to 135 lbs. Encouraged patient to adjust caloric intake to maintain/achieve ideal body weight, emphasizing on fruits, vegetables, whole grains, and fat-free or low-fat products. These include lean meats, poultry, fish, beans, eggs, and nuts and foods that are low in saturated fats, trans-fats, cholesterol, salt (sodium), and glycemic index. Stressed the importance of regular exercise up to the patient's capacity limits. In this case, we recommend regular (4 x a week or more) walking or other light activity. Patient to monitor BP daily and bring records to PCP for further management. Follow-up: [address] Rendon consultation Not available 02/27/2023 16:54:51 Plan of Treatment Reminders Order Date Submit Date Provider Last Modified By Organization Details Last Modified Time Details Appointments None recorded. Lab ferritin, serum or plasma 2022 023 [facility] (Lab), [address] [place], [address], 4 13:12:57 hemoglobin + hematocrit, blood 2022 023 [facility] (Lab), [address] [place], [address], 4 14:54:42 iron + TIBC + ferritin, serum 2022 023 [facility] (Lab), [address] [place], [address], 3 16:24:46 folate, RBC 2022 023 [email or web address] 25 [facility] (Lab), [address] [place], [address], 3 14:48:57 vitamin B12, serum 2022 023 [email or web address] 25 [facility] (Lab), [address] [place], [address], 3 14:48:58 ESR (erythrocyt e sedimentati on rate), blood [email or web address] [place] [address] (Lab), [address] [place], [address], 3 14:48:58 hemoglobin + hematocrit, blood [email or web address] [place] [address] (Lab), [address] [place], [address], 3 14:48:58 bun (blood urea nitrogen), serum or plasma [email or web address] [place] [address] (Lab), [address] [place], [address], 3 14:48:58 creatinine, serum or plasma 2022 023 [email or web address] 25 [facility] (Lab), [address] [place], [address], 3 14:48:58 magnesium, serum or plasma [email or web address] [place] [address] (Lab), [address] [place], [address], 3 14:48:59 vitamin E, serum 2022 023 [email or web address] 25 [facility] (Lab), [address] [place], [address], 3 14:48:59 scleroderma (SCL-70) autoantibod ies, serum [email or web address] [place] [address] (Lab), [address] [place], [address], 3 14:48:57 BONITA (antinuclea r antibodies) screen, serum [email or web address] [place] [address] (Lab), [address] [place], [address], 3 14:48:57 anca panel, serum [email or web address] [place] [address] (Lab), [address] [place], [address], 3 14:48:57 rf (rheumatoid factor), serum 2022 023 [place] [facility] (Lab), [address] [place], [address], 3 18:27:49 HIV (1+2) Ab screen, serum [email or web address] [place] [address] (Lab), [address] [place], [address], 3 14:48:57 Referral hematologis t/oncologis t referral - Patient needs iron infusion +/- blood transfusion 2023 024 [email or web address] 25 Sean Rendon MD, [address] [place], [address], 4 14:12:48 Procedures None recorded. Surgeries None recorded. Imaging polysomnogr am, diagnostic, 6 yrs or older - No Auth Required [email or web address] [facility], [address] [place], [address], 3 16:22:19 US, echocardiog ron, transthorac ic, complete, w/ color flow - Approved [id number] 07/13/2022-2022 023 [facility] ([facility]), [address] [place], [address], 3 17:22:21 CT, chest, w/o contrast - high resolution Approved [id number] 07/13/2022-2022 023 [facility] ([facility] Scheduling), [address] [place], [address], 3 12:54:59 Medication Orders ferrous sulfate 325 mg (65 mg iron) tablet 2023 024 [email or web address] [place] [address] , [place], [address], 4 16:32:16 Vitamin C 500 mg tablet 2023 024 [facility] [address] , [place], [address], 4 16:32:49 ferrous sulfate 325 mg (65 mg iron) tablet 2022 023 [facility] [address], [address] , [place], [address], 4 16:32:16 Vitamin C 500 mg tablet 2022 023 [facility] [address], [address] , [place], [address], 16:32:49 Patient TargetsNo targets recorded. Patient Instructions Encounter Date Encounter Id Patient Instructions Last Modified By Organization Details Last Modified Time 07/13/2022 [id number] methacholine challenge* - No Auth Required AL Not available 09/20/2022 09:59:33 Reason for Referral Patient needs iron infusion +/- blood transfusion Referring Physician: Aydin Lino, Pulmonary Disease, Encounter Date: 02/27/2023 Results Created Date Observation Date Name Description Value Unit Range Abnormal Flag Note LastModifiedBy Organization Detail LastModifiedTime 10/13/1910/13/2022 HIV 1/2 ANTIG EN/AN TIBOD Y,FOU RTH GENER ATION W/RFL HIV Ag/Ab, 4TH gen NON-RE ACTIVE non-re active normal HIV-1 antig en and HIV-1 /HIV- 2 antib odies were not detec steve. There is no labor atory evide nce of HIV infec tion. PLEAS E NOTE: This infor matio n has been discl osed to you from recor ds whose confi denti ality may be prote cted by state law. If your state requi res such prote ction , then the state law prohi bits you from [facility] discl osure of the infor matio n witho ut the speci fic writt en conse nt of the perso n to whom it perta ins, or as other lezama permi tted by law. A gener al autho rizat ion for the relea se of medic al or other infor matio n is NOT suffi cient for this purpo se. For addit ional infor matio n pleas e refer to http: //[facility] catmayi n.que stdia gnost ics.c om/fa q/FAQ 106 (This link is being provi ded for infor matio nal/ educa danelle l purpo ses only. ) The perfo rmanc e of this assay has not been clini doni valid ated in patie nts less than 2 years old. Not Available [email or web address] [facility] [address] [place], [address], 10/13/2022 18:27:48 10/13/19 23 10/13/2022 BONITA SCREE N, IFA, W/REF L TITER AND PATTE RN BONITA screen, ifa NEGATI VE negati ve normal BONITA IFA is a first line scree n for detec ting the prese nce of up to appro ximat frederick 150 autoa ntibo dies in vario us autoi mmune disea ses. A negat samantha BONITA IFA resul t sugge sts an BONITA-a ssoci ated autoi mmune disea se is not prese nt at this time, but is not defin itive . If there is high clini divina suspi cion for Sjogr en's syndr ome, testi ng for anti- SS-A/ Ro antib deana shoul d be consi dered . Anti- Desiree-1 antib deana shoul d be consi dered for clini doni suspe cted infla mmato ry myopa paz . AC-0: Negat samantha Inter natio nal Conse nsus on BONITA Patte rns (http s://d oi.or g/10. 1515/ [facility]2017- 0052) For addit ional infor nan edmond e refer to http: //vinh curry.Que stDia gnost ics.c om/fa q/FAQ 177 (This link is being provi ded for infor matio nal/ educa danelle l purpo ses only. ) Not Available [email or web address] [address] [address] [place], [address], 10/13/2022 18:27:49 10/13/1910/13/2022 RHEUM ATOID FACTO R rheumatoid factor <14 IU/mL <14 normal Not Available [email or web address] [address] [place], [address], 10/13/2022 18:27:49 10/13/19 23 10/13/2022 SCL-7 0 ANTIB DEANA scl-70 antibody <1.0 NEG ai <1.0 neg normal Not Available [email or web address] [facility] [address] [place], [address], 10/13/2022 18:27:50 07/23/19 23 07/21/2022 CT, chest , w/o contr ast No observ ation record ed. [facility] [address] [place], [address], 07/22/2022 14:44:17 07/23/19 23 07/21/2022 US, echoc ardio gram, trans thora cic, compl ete, w/ color flow No observ ation record ed. [facility] ([facility] Sched[facility]) [address] [place], [address], 07/22/2022 17:22:21 08/18/19 23 07/07/2022 XR, chest , 2 view No observ ation record ed. [facility] Not Available 2022 16:26:58 08/18/19 23 04/14/2022 XR, chest , 2 view No observ ation record ed. [facility] Not Available 2022 16:28:31 08/18/19 23 08/20/2020 XR, chest , 2 view No observ ation record ed. [facility] Not Available 2022 16:33:28 08/18/19 23 01/20/2013 XR, chest , 2 view No observ ation record ed. [facility] Not Available 2022 16:37:42 08/18/19 23 01/20/2014 XR, chest , 2 view No observ ation record ed. [facility] Not Available 2022 16:39:12 08/18/19 23 07/07/2017 XR, chest , 2 view No observ ation record ed. [facility] Not Available 2022 16:40:49 08/18/19 23 08/31/2010 XR, chest , 2 view No observ ation record ed. [facility] Not Available 2022 16:59:49 08/18/19 23 10/28/2009 XR, chest , 2 view No observ ation record ed. [facility] Not Available 2022 16:59:50 08/18/19 23 09/25/2012 XR, chest , 2 view No observ ation record ed. [facility] Not Available 2022 16:59:50 08/18/19 23 07/19/2006 XR, chest , 2 view No observ ation record ed. [facility] Not Available 2022 16:59:50 08/18/19 23 10/27/2009 XR, chest , 2 view No observ ation record ed. [facility] Not Available 2022 16:59:50 08/19/19 23 07/19/2006 CT, brain , w/o contr ast No observ ation record ed. [facility] Not Available 2022 17:59:19 09/21/19 23 09/19/2022 metha choli ne chall enge* No observ ation record ed. [facility] ([facility] Sched[facility]) [address] [place], [address], 09/20/2022 09:59:33 11/10/1911/02/2022 polys omnog ron, split night No observ ation record ed. [facility] Not Available 2022 18:47:17 Result Notes None recorded. 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 Not Available [facility] 3 16:40:29 Iron deficiency anemia 17638176 Active 2021 Not Available [facility] 3 16:40:29 Atelectasis 25638234 Active 2022 Aydin Lino MD [address], [place] [address], [place], [address] , [facility] 3 12:52:14 Hiatal hernia 44866188 Active 2022 Aydin Lino MD [address] [facility] [[email or web address] [address], [place], [address] , [facility] 3 13:02:32 Sleep apnea 01265478 Active 2022 Aydin Lino MD [address], [place], [address] , [facility] 3 12:33:58 Periodic limb movement disorder 494148197 Active 2022 Aydin Lino MD [address], [place], [address] , [facility] 3 10:23:11 Notes:Medical History: Anxie ty/Depression Migraine headaches Right traumatic hearing loss R>L tinnitus Keratoconjunctivitis sicca Rhinitis with postnasal drip IgE <2 IU/mL Eosinophils 400/uL COVID infection 11/2020 Alpha-1 antitrypsin PiMM 155 mg% 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 Procedures Surgical History None recorded. Imaging Results Imaging Date Name Status LastModified by Organization Details LastModified Time 07/21/2022 CT, chest, w/o contrast completed [address] [place], [address], 07/22/2022 14:44:17 07/21/2022 US, echocardiogram, transthoracic, complete, w/ color flow completed [facility] ([facility] Sched[facility]) [address] [place], [address], 07/22/2022 17:22:21 07/07/2022 XR, chest, 2 view completed [facility] Information not available 08/17/2022 16:26:58 04/14/2022 XR, chest, 2 view completed [facility] Information not available 08/17/2022 16:28:31 08/20/2020 XR, chest, 2 view completed [facility] Information not available 08/17/2022 16:33:28 01/20/2013 XR, chest, 2 view completed [facility] Information not available 08/17/2022 16:37:42 01/20/2014 XR, chest, 2 view completed [facility] Information not available 08/17/2022 16:39:12 07/07/2017 XR, chest, 2 view completed [facility] Information not available 08/17/2022 16:40:49 08/31/2010 XR, chest, 2 view completed [facility] Information not available 08/17/2022 16:59:49 10/28/2009 XR, chest, 2 view completed [facility] Information not available 08/17/2022 16:59:50 09/25/2012 XR, chest, 2 view completed [facility] Information not available 08/17/2022 16:59:50 07/19/2006 XR, chest, 2 view completed [facility] Information not available 08/17/2022 16:59:50 10/27/2009 XR, chest, 2 view completed [facility] Information not available 08/17/2022 16:59:50 07/19/2006 CT, brain, w/o contrast completed [facility] Information not available 08/18/2022 17:59:19 09/19/2022 methacholine challenge* completed [facility] ([facility] Sched[facility]) [address] [place] [address], [address], 09/20/2022 09:59:33 11/02/2022 polysomnogram, split night completed [facility] Information not available 11/09/2022 18:47:17 Procedure Notes None recorded. Medical Equipment None Reported. Allergies Allergen ID Allergen Name Allergen Category Reaction Reaction Severity Criticality Documentation Date Start Date Code Code System Note Provider Name and Address Organization Details Recorded Time 83419 Substance with sulfonami de structure and antibacte rial mechanism of action (substanc e) medicatio n headache Not available Not available 04/20/2022 11530 8003 SNOMED Not Available [facility] 16:41:24 70368 morphine medicatio n Not available Not available Not available 04/20/2022 7052 RxNorm shock Not Available [facility] 3 16:41:24 85930 Compazine medicatio n Not available Not available Not available 04/20/202298668 6 RxNorm agita tion Not Available [facility] 3 16:41:24 24157 codeine medicatio n nausea Not available Not available 04/20/2022 2670 RxNorm Not Available [facility] 3 16:41:24 83154 azithromy woody medicatio n nausea Not available Not available 04/20/2022 83097 RxNorm Not Available [facility] 3 16:41:24 Medications Name Sig Start Date Stop Date Status Note LastModified by Organization Details LastModified Time methylcobal rand 1000 mcg/ml (sterile) injectable milliliters START BY INJECTING 1ML INTRAMUSC ULARLY 1-2 TIMES WEEKLY INCREASIN G UP TO 2ML 1-2 TIMES WEEKLY 02/18 completed Not Available Not Available Not Available cyclobenzap rine 10 mg tablet 01/06 completed Not Available Not Available Not Available amoxicillin 500 mg capsule TAKE 1 CAPSULE BY MOUTH TWICE DAILY FOR 10 DAYS 01/17 completed Not Available Not Available Not Available silver sulfadiazin e 1 % topical cream 01/06 completed Not Available Not Available Not Available prednisone 10 mg tablet 01/06 completed Not Available Not Available Not Available rabeprazole 20 mg tablet,mary yed release 09/24 completed Not Available Not Available Not Available clindamycin HCl 300 mg capsule 01/06 completed Not Available Not Available Not Available Vitamin C 500 mg tablet Take 1 tablet twice a day by oral route. 02/18 completed Not Available Not Available Not Available azithromyci n 250 mg tablet TAKE 2 TABLETS BY MOUTH ON DAY 1, AND THEN TAKE 1 TABLET BY MOUTH ONCE A DAY ON DAY 2 THROUGH DAY 5 11/23 completed Not Available Not Available Not Available pravastatin 40 mg tablet TAKE 1 TABLET BY MOUTH ONCE DAILY 07/13 completed Not Available Not Available Not Available ibuprofen 800 mg tablet 01/06 completed Not Available Not Available Not Available sumatriptan 100 mg tablet TAKE ONE TABLET BY MOUTH AT ONSET OF HEADACHE, IF NO RELIEF MAY REPEAT AFTER AT LEAST 2 HOURS. MAX OF 2 TABLET PER 24 HOURS 07/13 completed Not Available Not Available Not Available hydrocodone 5 mg-acetamin ophen 325 mg tablet 09/24 completed Not Available Not Available Not Available lisinopril 20 mg tablet 09/24 completed Not Available Not Available Not Available Diflucan 150 mg tablet Take 1 tablet every day by oral route. 07/07 completed Not Available Not Available Not Available amlodipine 5 mg tablet Take 1 tablet every day by oral route. 07/13 completed Not Available Not Available Not Available Tamiflu 75 mg capsule 01/06 completed Not Available Not Available Not Available doxycycline monohydrate 100 mg tablet Take 1 tablet twice a day by oral route. 07/07 completed Not Available Not Available Not Available tramadol 50 mg tablet 09/24 completed Not Available Not Available Not Available ondansetron 8 mg disintegrat ing tablet 01/06 completed Not Available Not Available Not Available fenofibrate micronized 134 mg capsule Take 1 capsule every day by oral route. 07/13 completed Not Available Not Available Not Available ketorolac 10 mg tablet 01/06 completed Not Available Not Available Not Available ofloxacin 0.3 % ear drops INSTILL 4 DROPS INTO THE RIGHT EAR THREE TIMES DAILY FOR 7 DAYS 07/13 completed Not Available Not Available Not Available phenazopyri dine 100 mg tablet TAKE 1 TABLET BY MOUTH THREE TIMES DAILY AFTER A MEAL NEEDED FOR 2 DAYS 07/13 completed Not Available Not Available Not Available benzonatate 100 mg capsule 01/06 completed Not Available Not Available Not Available cephalexin 500 mg capsule TAKE 1 CAPSULE BY MOUTH THREE TIMES DAILY FOR 3 DAYS 07/13 completed Not Available Not Available Not Available ferrous sulfate 325 mg (65 mg iron) tablet Take 1 tablet twice a day by oral route. 02/18 completed Not Available Not Available Not Available metoprolol tartrate 50 mg tablet TAKE 1 TABLET BY MOUTH ONCE DAILY 01/17 completed Not Available Not Available Not Available Ferrous Sulfate FC 325 mg tablet Take 1 tablet every day by oral route. 08/05/ 2022 11/28 /2022 completed Not Available Not Available Not Available gabapentin 300 mg capsule TAKE 1 CAPSULE BY MOUTH AT BEDTIME 07/13 completed Not Available Not Available Not Available sertraline 25 mg tablet TAKE 1 TABLET BY MOUTH ONCE DAILY 07/13 completed Not Available Not Available Not Available pravastatin 20 mg tablet TAKE 1 TABLET BY MOUTH ONCE DAILY 02/27 completed Not Available Not Available Not Available hydrochloro thiazide 25 mg tablet TAKE 1 TABLET BY MOUTH ONCE DAILY IN THE MORNING 02/18 completed Not Available Not Available Not Available gabapentin 100 mg capsule TAKE 1 CAPSULE BY MOUTH IN THE MORNING 07/07 completed Not Available Not Available Not Available ergocalcife rol (vitamin D2) 1,250 mcg (50,000 unit) capsule TAKE 1 CAPSULE BY MOUTH WEEKLY 07/13 completed Not Available Not Available Not Available lorazepam 1 mg tablet TAKE 1 TABLET BY MOUTH TWICE DAILY NEEDED 02/18 completed Not Available Not Available Not Available estradiol 0.01% (0.1 mg/gram) vaginal cream APPLY TO PERINEAL AREA ONCE A DAY DAILY FOR 14 DAYS 07/07 completed Not Available Not Available Not Available albuterol sulfate HFA 90 mcg/actuati on aerosol inhaler INHALE 2 PUFFS BY MOUTH EVERY 6 HOURS NEEDED 02/27 completed Not Available Not Available Not Available cefdinir 300 mg capsule TAKE 1 CAPSULE BY MOUTH EVERY 12 HOURS FOR 7 DAYS 07/07 completed Not Available Not Available Not Available losartan 100 mg tablet TAKE 1 TABLET BY MOUTH ONCE DAILY 02/18 completed Not Available Not Available Not Available fluticasone propionate 50 mcg/actuati on nasal spray,suspe nsion USE 1 SPRAY(S) IN EACH NOSTRIL TWICE DAILY 02/27 completed Not Available Not Available Not Available diazepam 5 mg tablet 09/24 completed Not Available Not Available Not Available amoxicillin 875 mg-potassiu m clavulanate 125 mg tablet TAKE 1 TABLET BY MOUTH TWICE DAILY FOR 10 DAYS 11/23 completed Not Available Not Available Not Available amoxicillin 500 mg-potassiu m clavulanate 125 mg tablet TAKE 1 TABLET BY MOUTH EVERY 12 HOURS FOR 10 DAYS 07/13 completed Not Available Not Available Not Available Restasis 0.05 % eye drops in a dropperette INSTILL 1 DROP INTO EACH EYE TWICE DAILY 02/18 completed Not Available Not Available Not Available metoprolol tartrate 25 mg tablet TAKE 1 TABLET BY MOUTH TWICE DAILY WITH FOOD 02/27 completed Not Available Not Available Not Available duloxetine 30 mg capsule,del ayed release 09/24 completed Not Available Not Available Not Available Dulera 200 mcg-5 mcg/actuati on HFA aerosol inhaler 09/24 completed Not Available Not Available Not Available Jardiance 10 mg tablet TAKE 1 TABLET BY MOUTH ONCE DAILY 02/27 completed Not Available Not Available Not Available Xiidra 5 % eye drops in a dropperette INSTILL 1 DROP INTO EACH EYE TWICE DAILY DIRECTED 07/13 completed Not Available Not Available Not Available Cequa 0.09 % eye drops in a dropperette INSTILL 1 DROP INTO EACH EYE TWICE DAILY 02/18 completed Not Available Not Available Not Available Vitals Date Recorded Body height Body mass index (BMI) Body weight Body temperature Heart rate Systolic blood pressure Diastolic blood pressure Provider Name and Address Organization Details Last Updated DateTime 3 165.1 cm 36.9 kg/m2 917114. 51 g 98.7 [degF] 77 /min 140 mm[Hg] 76 mm[Hg] Anabel Nunez MA [employer] 3 12:38:01 Date Recorded Oxygen saturation Oxygen saturation in Arterial blood by Pulse oximetry Heart rate Respiratory rate Provider Name and Address Organization Details Last Updated DateTime 07/13/2022 95 % 95 % 77 /min 15 /min Aydin Lino MD [address] [facility] [address], [address], [employer] 3 12:48:10 Date Recorded Body height Body mass index (BMI) Body weight Body temperature Heart rate Oxygen saturation Oxygen saturation in Arterial blood by Pulse oximetry Systolic blood pressure Diastolic blood pressure Provider Name and Address Organization Details Last Updated DateTime 3 165.1 cm 36.3 kg/m2 37608.1 4 g 97.8 [degF] 80 /min 96 % 96 % 140 mm[Hg] 78 mm[Hg] Anabel Nunez MA [employer] 3 12:12:26 Date Recorded Heart rate Respiratory rate Provider N leticia and Address Organization Details Last Updated DateTime 09/19/2022 80 /min 15 /min Aydin Lino MD [address] [place], [address], [place] [facility] [employer] [facility] 09/19/2022 12:43:48 Date Recorded Body height Body mass index (BMI) Body weight Systolic blood pressure Diastolic blood pressure Provider Name and Address Organization Details Last Updated DateTime 11/10/2022 165.1 cm 37.6 kg/m2 328393.8 8 g 134 mm[Hg] 78 mm[Hg] Anabel Nunez MA [place] [facility] [employer] 3 09:57:58 Date Recorded Body temperature Heart rate Oxygen saturation Oxygen saturation in Arterial blood by Pulse oximetry Heart rate Respiratory rate Provider Name and Address Organization Details Last Updated DateTime 3 99 [degF] 92 /min 95 % 95 % 92 /min 16 /min Aydin Lino MD [address] [place], [address], [place] [facility] [employer] 3 10:17:59 Date Recorded Body height Body temperature Heart rate Systolic blood pressure Diastolic blood pressure Provider Name and Address Organization Details Last Updated DateTime 12/01/2022 165.1 cm 98.6 [degF] 66 /min 128 mm[Hg] 76 mm[Hg] Anabel Nunez MA [place] [facility] [employer] 3 10:56:15 Date Recorded Oxygen saturation Oxygen saturation in Arterial blood by Pulse oximetry Respiratory rate Heart rate Body mass index (BMI) Body weight Provider Name and Address Organization Details Last Updated DateTime 3 95 % 95 % 15 /min 66 /min 36.1 kg/m2 14434.5 4 g Aydin Lino MD [address] [place], [address], [place] [facility] [employer] [facility] 3 11:20:31 Date Recorded Body height Body mass index (BMI) Body weight Body temperature Heart rate Oxygen saturation Oxygen saturation in Arterial blood by Pulse oximetry Systolic blood pressure Diastolic blood pressure Provider Name and Address Organization Details Last Updated DateTime 4 165.1 cm 37.1 kg/m2 244051. 1 g 98.9 [degF] 81 /min 95 % 95 % 126 mm[Hg] 76 mm[Hg] Anabel Nunez MA [employer] 16:04:27 Date Recorded Heart rate Respiratory rate Provider Enrique kelly and Address Organization Details Last Updated DateTime 02/27/2023 81 /min 14 /min Aydin Lino MD [address] [facility], [facility] [[email or web address]] [address], [place], [address], [employer] 02/27/2023 16:40:48 Social History Question Answer Notes LastModified by Organizat ion Details LastModified Time Tobacco Smoking Status Never Smoker Not Available [employer] 04/20/2022 16:39:44 What Is Your Level Of Alcohol Consumption? Occasional [id number] Information not available 04/20/2022 What Is Your Level Of Caffeine Consumption? Occasional [id number] Information not available 04/20/2022 In The 14 Days Before Symptom Onset, Have You Had Close Contact With A Laboratory-confirm ed COVID-19 While That Case Was Ill? No Information n ot available 07/13/2022 In The 14 Days Before Symptom Onset, Have You Had Close Contact With A Person Who Is Under Investigation For COVID-19 While That Person Was Ill? No Information not available 07/13/2022 Are You Currently Employed? No Information not available 07/13/2022 What Type Of Diet Are You Following? REGULAR [id number] Information not available 04/20/2022 Do You Have An Electrostatic Air Filter? Yes Information not available 07/13/2022 Have You Been Exposed To Chemicals Or Toxins? No Information not available 07/13/2022 Do You Have A Humidifier? No Information not available 07/13/2022 Do You Have Moisture Problems In Your Home? No Information not available 07/13/2022 What Was The Date Of Your Most Recent Tobacco Screening? 02/27/2023 Information not available 02/27/2023 Do You Have Any Pets? No Information not available 07/13/2022 What Is Your Relationship Status? [id number] Information not available 04/20/2022 Do You Use Your Seat Belt Or Car Seat Routinely? Yes Information not available 07/13/2022 Do You Have Smoke And Carbon Monoxide Detectors In Your Home? Yes Information not available 07/13/2022 Are You Passively Exposed To Smoke? No Information no t available 07/13/2022 Do You Use Any Illicit Or Recreational Drugs? No Information not available 07/13/2022 Do You Use Sunscreen Routinely? No Information not available 07/13/2022 Have You Recently Traveled Abroad? No [id number] Information not available 04/20/2022 Do You Have Any Dietary Restrictions? No Information not available 07/13/2022 Sex: Female Functional Status Question Answer Note LastModified by Organizat ion Details LastModified Time What is your exercise level? Occasional Information not available 07/13/2022 Mental Status None recorded. Family History Relationship Description Onset Age of this Age Resolved Age Notes LastModified by Organization Details LastModified Time Sister Mesothelioma (malignant, clinical disorder) [id number] Not available 04/20/2022 16:39:46 Paternal Grandmother Myelodysplas tic syndrome (clinical) Not available 02/21 13:10:50 Brother Obstructive sleep apnea syndrome Not available 2022 12:27:04 Medical History No medical history recorded. Gynecological HistoryNo gynecological history recorded. Obstetrics History GPAL:G 0 P 0 0 0 0 Past Encounters Encounter ID Performer Location Encounter Start Date Encounter Closed Date Diagnosis/Indication Diagnosis SNOMED-CT Code Diagnosis ICD10 Code Diagnosis Note [id number] Aydin Lino MD [facility] [address] [address] 01/11/2021 00:00:00 01/11/2021 11:55:13 [id number] _ATHN_MIGR ATION_1 _ATHENA_M IGRATION_ DEFAULT_1 _1 , 01/17/2022 00:00:00 01/17/2022 15:36:02 [id number] Aydin Lino MD [facility] [address] [address] 07/13/2022 11:55:27 07/14/2022 08:33:37 Atelectasis 68474327 J98.11 Dyspnea on exertion 6084 5006 R06.09 R05.9 J18.9 J98.11 Hiatal hernia 29075018 K 44.9 [id number] MD [facility] [address] [address] 09/19/2022 11:58:28 09/19/2022 15:58:37 Atelectasis 25082775 J98.11 Dyspnea on exertion 6084 5006 R06.09 R05.9 J98.11 I27.20 Z11.4 Hiatal hernia 27849740 K 44.9 Sleep apnea 75082207 G47 .30 G47.33 I27.20 G47.61 G47.36 [id number] [facility] [address] 11/10/2022 09:47:34 11/11/2022 08:38:08 Sleep apnea 47764764 G47.30 G47.33 I27.20 G47.61 G47.36 Atelectasis 71304654 J98 .11 Hiatal hernia 17779782 K 44.9 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 D50.8 E83.42 [id number] MD SE Masters [address] [address] 12/01/2022 10:35:24 12/02/2022 08:46:58 Sleep apnea 65226615 G47.30 G47.33 I27.20 G47.61 G47.36 Atelectasis 47000463 J98 .11 Hiatal hernia 79732755 K 44.9 Iron defic iency anemia 64872338 D50.9 [id number] MD SE Masters [address] [address] 02/27/2023 15:47:26 02/28/2023 09:01:40 Sleep apnea 62311955 G47.33 Atelectasis 31471881 J98 .11 Hiatal hernia 53299535 K 44.9 Iron defic iency anemia 87470721 D50.9 Health Concerns Section Related Observation LastModified by Organization Detai ls LastModified Time None Recorded Concern Status LastModified by Organization Details LastModified Time None Recorded Advance Directives Directive None Recorded Payers Encounter Date Sequence Insurance Name Policy Number Policy Morgan Covered Member ID Morgan Member ID Guarantor Name 07/13/2022 1 [facility] ON OR AFTER 08/20/20 (MEDICAID REPLACEMENT - HMO) Salma Worthy [id number] Salma B Worthy 09/19/2022 1 [facility] ON OR AFTER 08/20/20 (MEDICAID REPLACEMENT - HMO) Salma Worthy [id number] Salma B Worthy 11/10/2022 1 [facility] ON OR AFTER 08/20/20 (MEDICAID REPLACEMENT - HMO) Salma Worthy [id number] Salma B Worthy 12/01/2022 2 [place] [facility] Salma B Worthy [id number] Salma B Worthy 12/01/2022 1 [facility] (MEDICARE REPLACEMENT/AD VANTAGE - PPO) [id number] Salma B Worthy [id number] Salma B Worthy 02/27/2023 2 [place] [facility] Salma B Worthy [id number] Salma B Worthy 02/27/2023 1 [facility] (MEDICARE REPLACEMENT/AD VANTAGE - PPO) [id number] Salma B Worthy [id number] Salma B Worthy Notes Date Note Type Note Provider Name and Address Organization Details Recorded Time 3 text/html Primary care/Referring provider: Tanner Benítez MD [phone]; Eddie Michele MD [phone]: I was in [facility] regular nursing floor from 12/11/2020 - 12/16/2020 and received 5 days of Remdesivir for COVID pneumonia. I was discharged on 2 Lpm of exertional O2 for 5 days. My acid reflux is getting worse these days. Patient is here to go over her lab data and PFT as part of her shortness of breath evaluation/management. Initial development of shortness of breath: 2011Duration of shortness of breath: 12 yearsCondition of shortness of breath: stableTiming of shortness of breath: noneFrequency: up to 4 times a dayLimits activities: yesAggravating factors: walking, vacuumingAlleviating factors: restModified [employer] [place] (mMRC) Dyspnea Scale - Grade 2Grade 0 I only get breathless with strenuous exercise .Grade 1 I get short of breath when hurrying on the level or walking up a slight hill .Grade 2 I walk slower than people of the same age on the level because of breathlessness or have to stop for breath when walking at my own pace on the level .Grade 3 I stop for breath after walking about 100 yards or after a few minutes on the level .Grade 4 I am too breathless to leave the house or I am breathless when dressing .Treatment history:Dulera 200/5 mcg 2 puffs BID 2013 -2017Generic Ventolin HFA as needed since 2013Other symptoms:Productive cough: noWheezing: yesChest tightness: yesOrthopnea: noFrequent throat clearing or swallowing: noPalpitations: noHeartburn: yesDysphagia: noEdema: noEnvironmental exposures:Nicotine smoke: noPaint: noDye: noDust mites: yesMold: noDamp basement: noWood burning stove: noAnimal dander: noCockroaches: noPollen: yesArsenic: noAsbestos: yes (home + middle school)Beryllium: noCadmium: noChromium: noCoal smoke: noDiesel fumes: noNickel: noSilica: noSoot: noEPWORTH SLEEPINESS SCALE (ESS)CHANCE OF DOZING SCORE0 = would never doze1 = slight chance of dozing2 = moderate chance of dozing3 = high chance of dozingSITUATION AND CHANCE OF DOZINGSitting and reading - 3Watching television - 3Sitting inactive in a public place (e.g. a theater or meeting) - 0As a passenger in a car for an hour without a break - 0Lying down to rest in the afternoon when circumstances permit - 3Sitting and talking to someone - 0Sitting quietly after lunch without alcohol - 1In a car, while stopped for a few minutes in the traffic - 0TOTAL SCORE 10Subjectively, patient has a moderate chance of dozing. Aydin Lino MD [address] [place] [address], [facility] [[email or web address]] [address], [place], [address], [place] [facility] 07/13/2022 13:11:27 3 text/html Primary care/Referring provider: Tanner Benítez MD [phone]; Eddie Michele MD [phone] is here to go over her methacholine challenge as part of her shortness of breath evaluation/management. Initial development of shortness of breath: 2011Duration of shortness of breath: 12 yearsCondition of shortness of breath: stableTiming of shortness of breath: noneFrequency: up to 4 times a dayLimits activities: yesAggravating factors: walking, vacuumingAlleviating factors: restModified [employer] [place] (mMRC) Dyspnea Scale - Grade 2Grade 0 I only get breathless with strenuous exercise .Grade 1 I get short of breath when hurrying on the level or walking up a slight hill .Grade 2 I walk slower than people of the same age on the level because of breathlessness or have to stop for breath when walking at my own pace on the level .Grade 3 I stop for breath after walking about 100 yards or after a few minutes on the level .Grade 4 I am too breathless to leave the house or I am breathless when dressing .Treatment history:Dulera 200/5 mcg 2 puffs BID 2013 -2017Generic Ventolin HFA as needed since 2013Other symptoms:Productive cough: noWheezing: yesChest tightness: yesOrthopnea: noFrequent throat clearing or swallowing: noPalpitations: noHeartburn: yesDysphagia: noEdema: noEnvironmental exposures:Nicotine smoke: noPaint: noDye: noDust mites: yesMold: noDamp basement: noWood burning stove: noAnimal dander: noCockroaches: noPollen: yesArsenic: noAsbestos: yes (home + middle school)Beryllium: noCadmium: noChromium: noCoal smoke: noDiesel fumes: noNickel: noSilica: noSoot: no At home, the patient sleeps from 12:30 am to 6:30 am and wakes up without an alarm. Snoring: moderate, since . Snorting: no Choking: no Coughing: no Gasping: no Gagging: no Sighing: no Witnessed apnea: yes Twitching or jerking of leg(s), arm(s), body, head: yes Teeth grinding: no Teeth clenching: no Sleeptalking: no Sleepwalking: no Sleep crying: no Bedwetting: no Tongue/lip/gum/cheek biting: no Sleeping with open mouth: yes Sleep paralysis: yes Hypnagogic hallucinations: no Hypnopompic hallucinations: no Vivid dreams: no Difficulty with sleep onset: no Difficulty with sleep maintenance: yes Sleep interruptions: for no known reasons Patient wakes up with: fatigue, xerostomia, headaches Daytime cataplexy: no Morning hypersomnolence: no Afternoon hypersomnolence: yes Caffeine sources in diet: soda 24 oz per day, chocolate 1 candy bar per month Associated medical and psychiatric conditions: Congestive heart failure: no Coronary artery disease: no Myocardial infarction: no Hypertension: yes Stroke: no Bronchial asthma: no Chronic obstructive pulmonary disease: no Depression: yes Bipolar disorder: no Anxiety: yes Panic disorder: no Posttraumatic stress disorder: no Attention deficit and hyperactivity disorder: no Obsessive Compulsive disorder: no Schizophrenia: no Schizoaffective disorder: no Personality disorder: no Chronic analgesic use: no Chronic sedative/hypnotic use: no EPWORTH SLEEPINESS SCALE (ESS)CHANCE OF DOZING SCORE0 = would never doze1 = slight chance of dozing2 = moderate chance of dozing3 = high chance of dozingSITUATION AND CHANCE OF DOZINGSitting and reading - 2Watching television - 3Sitting inactive in a public place (e.g. a theater or meeting) - 0As a passenger in a car for an hour without a break - 0Lying down to rest in the afternoon when circumstances permit - 3Sitting and talking to someone - 0Sitting quietly after lunch without alcohol - 2In a car, while stopped for a few minutes in the traffic - 0TOTAL SCORE 10Subjectively, patient has a moderate chance of dozing. Aydin Lino MD [address] [facility], [address], [place], [address], [place] [facility] 09/19/2022 12:44:51 3 text/html Primary care/Referring provider: Tanner Benítez MD [phone]; Eddie Michele MD [phone] is here to go over her shortness of breath evaluation/management. Initial development of shortness of breath: 2011Duration of shortness of breath: 12 yearsCondition of shortness of breath: stableTiming of shortness of breath: noneFrequency: up to 4 times a dayLimits activities: yesAggravating factors: walking, vacuumingAlleviating factors: restModified [employer] [place] (mMRC) Dyspnea Scale - Grade 2Grade 0 I only get breathless with strenuous exercise .Grade 1 I get short of breath when hurrying on the level or walking up a slight hill .Grade 2 I walk slower than people of the same age on the level because of breathlessness or have to stop for breath when walking at my own pace on the level .Grade 3 I stop for breath after walking about 100 yards or after a few minutes on the level .Grade 4 I am too breathless to leave the house or I am breathless when dressing .Treatment history:Dulera 200/5 mcg 2 puffs BID 2013 -2017Generic Ventolin HFA as needed since 2013Other symptoms:Productive cough: noWheezing: yesChest tightness: yesOrthopnea: noFrequent throat clearing or swallowing: noPalpitations: noHeartburn: yesDysphagia: noEdema: noEnvironmental exposures:Nicotine smoke: noPaint: noDye: noDust mites: yesMold: noDamp basement: noWood burning stove: noAnimal dander: noCockroaches: noPollen: yesArsenic: noAsbestos: yes (home + middle school)Beryllium: noCadmium: noChromium: noCoal smoke: noDiesel fumes: noNickel: noSilica: noSoot: no During the [facility] split night sleep study on 11/02/22, sleep onset = 29 minutes, REM onset = 78 minutes, AHI = 31, supine AHI = 34, REM AHI = 52, PLMI = 6. The patient uses a [employer]Med AirSense 11 autoset unit with heated humidification. The patient does not need the ramp to start low and go up slowly on the pressure. There is no xerostomia in a.m. There is no hose/mask condensation with water. The patient wears [employer] small AirFit P10 nasal pillows without chin strap. There is no claustrophobia, no nostril/nose bridge irritation, no facial rash, no facial numbness, no nosebleeding. The patient feels more refreshed upon waking and daytime alertness is improved. Energy levels are sustained until noon. At home, the patient sleeps from 12:30 am to 6:30 am and wakes up without an alarm. Snoring: moderate, since .Snorting: noChoking: noCoughing: noGasping: noGagging: noSighing: noWitnessed apnea: yesTwitching or jerking of leg(s), arm(s), body, head: yesTeeth grinding: noTeeth clenching: noSleeptalking: noSleepwalking: noSleep crying: noBedwetting: noTongue/lip/gum/cheek biting: noSleeping with open mouth: yesSleep paralysis: yesHypnagogic hallucinations: noHypnopompic hallucinations: noVivid dreams: noDifficulty with sleep onset: noDifficulty with sleep maintenance: yesSleep interruptions: for no known reasonsPatient wakes up with: fatigue, xerostomia, headachesDaytime cataplexy: noMorning hypersomnolence: noAfternoon hypersomnolence: yesCaffeine sources in diet: soda 24 oz per day, chocolate 1 candy bar per month Associated medical and psychiatric conditions:Congestive heart failure: noCoronary artery disease: noMyocardial infarction: noHypertension: yesStroke: noBronchial asthma: noChronic obstructive pulmonary disease: noDepression: yesBipolar disorder: noAnxiety: yesPanic disorder: noPosttraumatic stress disorder: noAttention deficit and hyperactivity disorder: noObsessive Compulsive disorder: noSchizophrenia: noSchizoaffective disorder: noPersonality disorder: noChronic analgesic use: noChronic sedative/hypnotic use: no EPWORTH SLEEPINESS SCALE (ESS)CHANCE OF DOZING SCORE0 = would never doze1 = slight chance of dozing2 = moderate chance of dozing3 = high chance of dozingSITUATION AND CHANCE OF DOZINGSitting and reading - 3Watching television - 3Sitting inactive in a public place (e.g. a theater or meeting) - 2As a passenger in a car for an hour without a break - 0Lying down to rest in the afternoon when circumstances permit - 3Sitting and talking to someone - 0Sitting quietly after lunch without alcohol - 2In a car, while stopped for a few minutes in the traffic - 0TOTAL SCORE 13Subjectively, patient has a moderate chance of dozing. Aydin Lino MD [address] [place] [address], [id number], [place] [facility] [place] [facility] 11/10/2022 10:36:49 3 text/html Primary care/Referring provider: Tanner Benítez MD [phone]; Eddie Michele MD [phone] is here to go over her shortness of breath evaluation/management. Initial development of shortness of breath: 2010Duration of shortness of breath: 12 yearsCondition of shortness of breath: stableTiming of shortness of breath: noneFrequency: up to 4 times a dayLimits activities: yesAggravating factors: walking, vacuumingAlleviating factors: restModified Medical Research [place] (mMRC) Dyspnea Scale - Grade 2Grade 0 I only get breathless with strenuous exercise .Grade 1 I get short of breath when hurrying on the level or walking up a slight hill .Grade 2 I walk slower than people of the same age on the level because of breathlessness or have to stop for breath when walking at my own pace on the level .Grade 3 I stop for breath after walking about 100 yards or after a few minutes on the level .Grade 4 I am too breathless to leave the house or I am breathless when dressing .Treatment history:Dulera 200/5 mcg 2 puffs BID 2013 -2017Generic Ventolin HFA as needed since 2013Other symptoms:Productive cough: noWheezing: yesChest tightness: yesOrthopnea: noFrequent throat clearing or swallowing: noPalpitations: noHeartburn: yesDysphagia: noEdema: noEnvironmental exposures:Nicotine smoke: noPaint: noDye: noDust mites: yesMold: noDamp basement: noWood burning stove: noAnimal dander: noCockroaches: noPollen: yesArsenic: noAsbestos: yes (home + middle school)Beryllium: noCadmium: noChromium: noCoal smoke: noDiesel fumes: noNickel: noSilica: noSoot: no During the [facility] split night sleep study on 11/02/22, sleep onset = 29 minutes, REM onset = 78 minutes, AHI = 31, supine AHI = 34, REM AHI = 52, PLMI = 6 and she is here to go over her lab workup. The patient uses a ResMed AirSense 11 autoset unit with heated humidification. The patient does not need the ramp to start low and go up slowly on the pressure. There is no xerostomia in a.m. There is no hose/mask condensation with water. The patient wears ResMed small AirFit P10 nasal pillows without chin strap. There is no claustrophobia, no nostril/nose bridge irritation, no facial rash, no facial numbness, no nosebleeding. The patient feels more refreshed upon waking and daytime alertness is improved. Energy levels are sustained until noon. At home, the patient sleeps from 12:30 am to 6:30 am and wakes up without an alarm. Snoring: moderate, since .Snorting: noChoking: noCoughing: noGasping: noGagging: noSighing: noWitnessed apnea: yesTwitching or jerking of leg(s), arm(s), body, head: yesTeeth grinding: noTeeth clenching: noSleeptalking: noSleepwalking: noSleep crying: noBedwetting: noTongue/lip/gum/cheek biting: noSleeping with open mouth: yesSleep paralysis: yesHypnagogic hallucinations: noHypnopompic hallucinations: noVivid dreams: noDifficulty with sleep onset: noDifficulty with sleep maintenance: yesSleep interruptions: for no known reasonsPatient wakes up with: fatigue, xerostomia, headachesDaytime cataplexy: noMorning hypersomnolence: noAfternoon hypersomnolence: yesCaffeine sources in diet: soda 24 oz per day, chocolate 1 candy bar per month Associated medical and psychiatric conditions:Congestive heart failure: noCoronary artery disease: noMyocardial infarction: noHypertension: yesStroke: noBronchial asthma: noChronic obstructive pulmonary disease: noDepression: yesBipolar disorder: noAnxiety: yesPanic disorder: noPosttraumatic stress disorder: noAttention deficit and hyperactivity disorder: noObsessive Compulsive disorder: noSchizophrenia: noSchizoaffective disorder: noPersonality disorder: noChronic analgesic use: noChronic sedative/hypnotic use: no EPWORTH SLEEPINESS SCALE (ESS)CHANCE OF DOZING SCORE0 = would never doze1 = slight chance of dozing2 = moderate chance of dozing3 = high chance of dozingSITUATION AND CHANCE OF DOZINGSitting and reading - 2Watching television - 2Sitting inactive in a public place (e.g. a theater or meeting) - 0As a passenger in a car for an hour without a break - 0Lying down to rest in the afternoon when circumstances permit - 3Sitting and talking to someone - 0Sitting quietly after lunch without alcohol - 2In a car, while stopped for a few minutes in the traffic - 0TOTAL SCORE 7Subjectively, patient has a slight chance of dozing. Aydin Lino MD [address] [place] [address], [phone], [facility] [employer] [facility] 12/01/2022 11:22:04 4 text/html Primary care/Referring provider: Tanner Benítez MD [phone]; Eddie Michele MD [phone] is here to go over her MAVIS + pulmonary hypertension management. Initial development of shortness of breath: 2011Duration of shortness of breath: 13 yearsCondition of shortness of breath: stableTiming of shortness of breath: noneFrequency: up to 4 times a dayLimits activities: yesAggravating factors: walking, vacuumingAlleviating factors: restModified Medical Research [place] (mMRC) Dyspnea Scale - Grade 2Grade 0 I only get breathless with strenuous exercise .Grade 1 I get short of breath when hurrying on the level or walking up a slight hill .Grade 2 I walk slower than people of the same age on the level because of breathlessness or have to stop for breath when walking at my own pace on the level .Grade 3 I stop for breath after walking about 100 yards or after a few minutes on the level .Grade 4 I am too breathless to leave the house or I am breathless when dressing .Treatment history:Dulera 200/5 mcg 2 puffs BID 2013 -2017Generic Ventolin HFA as needed since 2013Other symptoms:Productive cough: noWheezing: yesChest tightness: yesOrthopnea: noFrequent throat clearing or swallowing: noPalpitations: noHeartburn: yesDysphagia: noEdema: noEnvironmental exposures:Nicotine smoke: noPaint: noDye: noDust mites: yesMold: noDamp basement: noWood burning stove: noAnimal dander: noCockroaches: noPollen: yesArsenic: noAsbestos: yes (home + middle school)Beryllium: noCadmium: noChromium: noCoal smoke: noDiesel fumes: noNickel: noSilica: noSoot: no During the [facility] split night sleep study on 11/02/22, sleep onset = 29 minutes, REM onset = 78 minutes, AHI = 31, supine AHI = 34, REM AHI = 52, PLMI = 6 and she has iron deficiency anemia. At home since 01/16/23, the patient uses a ResMed AirSense 11 autoset unit with heated humidification. The patient does not need the ramp to start low and go up slowly on the pressure. There is no xerostomia in a.m. There is no hose/mask condensation with water. The patient wears ResMed small AirFit P10 nasal pillows without chin strap. There is no claustrophobia, no nostril/nose bridge irritation, no facial rash, no facial numbness, no nosebleeding. The patient feels more refreshed upon waking and daytime alertness is improved. Energy levels are sustained until noon. At home, the patient sleeps from 12:30 am to 6:30 am and wakes up without an alarm. Snoring: moderate, since .Snorting: noChoking: noCoughing: noGasping: noGagging: noSighing: noWitnessed apnea: yesTwitching or jerking of leg(s), arm(s), body, head: yesTeeth grinding: noTeeth clenching: noSleeptalking: noSleepwalking: noSleep crying: noBedwetting: noTongue/lip/gum/cheek biting: noSleeping with open mouth: yesSleep paralysis: yesHypnagogic hallucinations: noHypnopompic hallucinations: noVivid dreams: noDifficulty with sleep onset: noDifficulty with sleep maintenance: yesSleep interruptions: for no known reasonsPatient wakes up with: fatigue, xerostomia, headachesDaytime cataplexy: noMorning hypersomnolence: noAfternoon hypersomnolence: yesCaffeine sources in diet: soda 24 oz per day, chocolate 1 candy bar per month Associated medical and psychiatric conditions:Congestive heart failure: noCoronary artery disease: noMyocardial infarction: noHypertension: yesStroke: noBronchial asthma: noChronic obstructive pulmonary disease: noDepression: yesBipolar disorder: noAnxiety: yesPanic disorder: noPosttraumatic stress disorder: noAttention deficit and hyperactivity disorder: noObsessive Compulsive disorder: noSchizophrenia: noSchizoaffective disorder: noPersonality disorder: noChronic analgesic use: noChronic sedative/hypnotic use: no EPWORTH SLEEPINESS SCALE (ESS)CHANCE OF DOZING SCORE0 = would never doze1 = slight chance of dozing2 = moderate chance of dozing3 = high chance of dozingSITUATION AND CHANCE OF DOZINGSitting and reading - 3Watching television - 3Sitting inactive in a public place (e.g. a theater or meeting) - 0As a passenger in a car for an hour without a break - 1Lying down to rest in the afternoon when circumstances permit - 3Sitting and talking to someone - 0Sitting quietly after lunch without alcohol - 3In a car, while stopped for a few minutes in the traffic - 0TOTAL SCORE 13Subjectively, patient has a moderate chance of dozing. Aydin Lino MD [address] [facility], [facility] [[email or web address]] [address], [place], [phone], [facility] 02/27/2023 16:55:06 OBGyn Episode No OBEpisode recorded.
--- OUTSIDE RECORDS SUMMARY | 2024-06-20 10:52 | XMS_ITS | Clinical Summary ---
Author Organization [facility] Address [address] [place] [address] Phone Care Team Providers Care Fibre Composite Technician Name Role Phone Maximo Arreguin MD Primary Care Provider [phone] Allergies Active Allergy Reactions Criticality Noted Date Comments Codeine Other (See Comments) Medium 03/30/2012 Abdominal cramping and convulsive Morphine Other (See Comments) 03/29/2012 Causes stomach to convulse. Prochlorperazine Other (See Comments) 03/29/2012 I could tear this room apart. Sulfa (Sulfonamide Antibiotics) Headache High 03/29/2012 Medications lisinopril (PRINIVIL) 20 mg Oral tablet Take 20 mg by mouth daily. Active omeprazole (PRILOSEC) 10 mg Oral CpDR Take 20 mg by mouth daily. Active Loratadine 5 mg Oral TbDL Take by mouth. Active prednisoLONE acetate (PRED FORTE) 1 % OP suspension 1 Drop 2 times daily. Active venlafaxine (EFFEXOR) 75 mg Oral tablet Take 1 Tab by mouth 2 times daily with meals. 40 Tab 0 03/31/2012 Active ondansetron (ZOFRAN ODT) 4 mg Oral TbDL Take 1 Tab by mouth every 8 hours as needed for Nausea. 20 Tab 0 03/31/2012 Active acetaminophen-ca ffeine-butalbita l (FIORICET) 325-40-50 mg Oral tabletIndication s:Migraine Take 1 Tab by mouth every 6 hours as needed for Migraine. 30 Tab 0 03/31/2012 Active hydrALAZINE (APRESOLINE) 25 mg tablet Take 1 Tablet (25 mg) by mouth 3 times daily. 90 Tablet 05/16/2024 Active Active Problems Problem Noted Date Diagnosed Date Syncope 03/31/2012 Overview (03/31/2012): Patient admitted after she was walking to her car from business meeting. She had an episode of intense pain and then began having anxiety symptoms and states she passed out for a very short moment, but did not fall to ground. She has had episodes of these spells in the past and takes 2 valium and her symptoms improve. CT head, EEG and MRI brain were unremarkable. Chronic pain 03/31/2012 Overview (03/31/2012): Suspect fibromyalgia and chronic back and neck pain from herniated discs. Patient reports she has been evaluated for back pain with MRI and has multiple herniated discs. She also reports pain all over the body that is chronic in nature. She has point tenderness in multiple pressure points. Started on effexor for both anxiety control and fibromyalgia-induced pain control Anxiety 03/31/2012 Overview (03/31/2012): Patient has longstanding history of anxiety, suspect this is large component to episode of shaking and brief syncope. She takes valium as needed for this. She is not on maintenance drug for anxiety. Effexor was started during admission to help with anxiety and chronic pain. Shaking spells 03/31/2012 Overview (03/31/2012): Patient had episode of shaking during her episode of anxiety and syncope. The shaking lasted about 45 minutes. Suspect large component of anxiety. MRI and EEG normal to rule out seizure. Medications for anxiety optimized. Migraine 03/31/2012 Overview (03/31/2012): Patient had migraine headache during admission, according to patient she has had these in the past and has imitrex at home for migraine . We continued Imitrex, added Fioricet and controlled associated nausea symptoms with zofran. UTI (lower urinary tract infection) 03/31/2012 Overview (03/31/2012): Patient did not have fever, had mild leukocytosis, treat with macrobid for three days GERD (gastroesophageal reflux disease) 3 Overview (03/31/2012): Patient has chronic GERD symptoms on daily basis. She is on omeprazole at home. She takes aleve on daily basis. Recommend BID omeprazole and discontinuation of of Aleve. Subconjunctival bleed 03/30/2012 Overview (03/31/2012): Patient had left subconjunctival bleed present prior to admission. She had seen an interstate planner and was prescribed steroid drops which were continued on admission. Encounters Date Type Department Care Team Description 06/11/2024 External Device Data [facility] ABSTRACTION Provider, Abstract 06/11/2024 External Device Data [facility] ABSTRACTION Provider, Abstract 06/11/2024 External Device Data [facility] ABSTRACTION Provider, Abstract 05/21/2024 External Device Data [facility] ABSTRACTION Provider, Abstract 05/21/2024 External Device Data [facility] ABSTRACTION Provider, Abstract 05/21/2024 External Device Data [facility] ABSTRACTION Provider, Abstract 05/16/2024 12:36 PM CDT - 05/16/2024 5:30 PM CDT Emergency [facility] Emergency Department [address] [place] [id number] Terrell Perez MD Fortney, John P, MD Encounter for blood typing (Primary Dx); Migraine without aura and with status migrainosus, not intractable; Accelerated hypertension Discharge Disposition: Home or Self Care from Last 3 Months Family History Medical History Relation Name Comments Healthy Brother Diabetes Father Unknown Mother Healthy Sister Relation Name Status Comments Brother Alive Father Alive Mother Alive Sister Alive Social History Tobacco Use Types Packs/Day Years Used Date Smoking Tobacco: Never Alcohol Use Standard Drinks/Week Comments No 0 (1 standard drink = 0.6 oz pur e alcohol) Feeling Safe Answer Date Recorded Are you in a relationship wi th someone who hurts you emotionally and/or physically? 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 Gender Identity Not on file Sexual Orientation Not on file Occupation Industry Job Start Date Job End Date Not on file Not on file Not on file Not on file Last Filed Vital Signs Vital Sign Reading Time Taken Comments Blood Pressure 159/63 05/16/2024 5:15 PM CDT Pulse 70 05/16/2024 5:15 PM CDT Temperature 36.7 C (98 F) 05/16/2024 5:15 PM CDT Respiratory Rate 16 05/16/2024 4:30 PM CDT Oxygen Saturation 92% 05/16/2024 5:15 PM CDT Inhaled Oxygen Concentration - - Weight 99.3 kg (219 lb) 05/16/2024 12:27 PM CDT Height 165.1 cm (5' 5 ) 05/16/2024 12:27 PM CDT Body Mass Index 36.44 05/16/2024 12:27 PM CDT Plan of Treatment Health Maintenance Due Date Last Done Comments Pre-Diabetes and Diabetes Screening 1955 DTAP/TDAP/TD VACCINES (1 - Tdap) 1976 PNEUMOCOCCAL VACCINE 50+ YEARS (1 of 2 - PCV) 12/05/18 77 BREAST CANCER SCREENING 1997 COLORECTAL SCREENING 2002 Colorectal Cancer Screening 2002 FIT-DNA Q 3 years 2002 FIT/FOBT Q 1 year 2002 Flex Sig/CT Colonography Q 5 years 2002 ZOSTER VACCINE (1 of 2) 12/06/2007 RSV VACCINE (60+ or ) (1 - Risk 60-74 years 1-dose series) 2017 OSTEOPOROSIS SCREENING 2022 INFLUENZA VACCINE (#1) 2023 Procedures Procedure Name Priority Date/Time Associated Diagnosis Comments CTA HEAD AND NECK W AND/OR WO CONTRAST Stat 05/16/2024 3:16 PM CDT TYPE AND SCREEN Stat 05/16/2024 12:56 PM CDT C-REACTIVE PROTEIN Stat 05/16/2024 12 :56 PM CDT SEDIMENTATION RATE Stat 05/16/2024 12 :56 PM CDT PTT Stat 05/16/2024 12:56 PM CDT PROTIME-INR Stat 05/16/2024 12:56 PM CDT COMPREHENSIVE METABOLIC PANEL Stat 05/16/2024 12:56 PM CDT CBC WITH DIFFERENTIAL Stat 05/16/2024 12:56 PM CDT EKG 12-LEAD Stat 05/16/2024 12:43 PM CDT from Last 3 Months Results * CTA HEAD AND NECK W AND/OR WO CONTRAST (05/16/2024 3:16 PM CDT) Anatomical Region Laterality Modality Head Computed Tomogra phy 05/16/2024 3:17 PM CDT Impressions 05/16/2024 3:26 PM CDT Impression: 1. Non-contrast Head CT: No acute intracranial abnormality. 2. CTA Head and Neck: No large vessel occlusion or hemodynamically significant luminal narrowing on CTA of the head and neck. 3. Multinodular thyroid gland with a right thyroid nodule measuring 1.7 cm. Recommend obtaining a nonemergent outpatient thyroid ultrasound for better characterization. DICTATION LOCATION: Location 1 - [facility] 05/16/2024 3:26 PM CDT CTA HEAD AND NECK WITH AND WITHOUT IV CONTRAST Date: 05/16/2024 3:16 PM HISTORY: sudden onset L sided neck and head pain, HTN. Hx of cervical manipulation.. Encounter for blood typing Comparison: 03/30/2012 Technique: Noncontrast head CT was obtained. Subsequently, computed tomographic angiography was obtained from the aortic arch to the vertex following the uneventful administration of intravenous contrast. Maximal intensity projection (MIP) reformatted images were generated and used for interpretation. The examination was performed with the adjustment of mA according to the patient size and/or the use of Iterative Reconstruction Technique. [employer] software was used. The examination was performed with the adjustment of mA according to the patient size and/or the use of Iterative Reconstruction Technique. CONTRAST: IOPAMIDOL 61 % INTRAVENOUS SOLUTION (MULTI-DOSE BULK PACK) Given:90 mL Findings: Noncontrast CT Head: Brain Parenchyma: No acute large territorial infarct or intracranial bleed. No mass or mass effect. Ventricles: No hydrocephalus. - - - - - - CTA head: Anterior Circulation: Right intracranial internal carotid artery: No hemodynamically significant stenosis Right middle cerebral artery: No hemodynamically significant stenosis Left intracranial internal carotid artery: No hemodynamically significant stenosis Left middle cerebral artery: No hemodynamically significant stenosis Anterior cerebral arteries: No hemodynamically significant stenosis Anterior communicating artery: Present. Posterior communicating arteries: Right P-Comm present. 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 No dural venous sinus thrombosis. - - - - - - CTA neck: Right carotid arterial system: Mild atherosclerosis at the carotid bifurcation, without any hemodynamically significant luminal narrowing. Left carotid arterial system: No hemodynamically significant luminal narrowing. Right vertebral artery: Diminutive in caliber (nondominant), but patent without any significant stenosis. Left vertebral artery: No stenosis. Multinodular thyroid gland with a right thyroid nodule measuring 1.7 cm. Procedure Note Stef SIMMS, Eliot Munguia MD - 05/16/2024 CTA HEAD AND NECK WITH AND WITHOUT IV CONTRAST Date: 05/16/2024 3:16 PM HISTORY: sudden onset L sided neck and head pain, HTN. Hx of cervical manipulation.. Encounter for blood typing Comparison: 03/30/2012 Technique: Noncontrast head CT was obtained. Subsequently, computed tomographic angiography was obtained from the aortic arch to the vertex following the uneventful administration of intravenous contrast. Maximal intensity projection (MIP) reformatted images were generated and used for interpretation. The examination was performed with the adjustment of mA according to the patient size and/or the use of Iterative Reconstruction Technique. [employer] software was used. The examination was performed with the adjustment of mA according to the patient size and/or the use of Iterative Reconstruction Technique. CONTRAST: IOPAMIDOL 61 % INTRAVENOUS SOLUTION (MULTI-DOSE BULK PACK) Given:90 mL Findings: Noncontrast CT Head: Brain Parenchyma: No acute large territorial infarct or intracranial bleed. No mass or mass effect. Ventricles: No hydrocephalus. - - - - - - CTA head: Anterior Circulation: Right intracranial internal carotid artery: No hemodynamically significant stenosis Right middle cerebral artery: No hemodynamically significant stenosis Left intracranial internal carotid artery: No hemodynamically significant stenosis Left middle cerebral artery: No hemodynamically significant stenosis Anterior cerebral arteries: No hemodynamically significant stenosis Anterior communicating artery: Present. Posterior communicating arteries: Right P-Comm present. 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 No dural venous sinus thrombosis. - - - - - - CTA neck: Right carotid arterial system: Mild atherosclerosis at the carotid bifurcation, without any hemodynamically significant luminal narrowing. Left carotid arterial system: No hemodynamically significant luminal narrowing. Right vertebral artery: Diminutive in caliber (nondominant), but patent without any significant stenosis. Left vertebral artery: No stenosis. Multinodular thyroid gland with a right thyroid nodule measuring 1.7 cm. Impression: 1. Non-contrast Head CT: No acute intracranial abnormality. 2. CTA Head and Neck: No large vessel occlusion or hemodynamically significant luminal narrowing on CTA of the head and neck. 3. Multinodular thyroid gland with a right thyroid nodule measuring 1.7 cm. Recommend obtaining a nonemergent outpatient thyroid ultrasound for better characterization. DICTATION LOCATION: Location 1 - [facility] Terrell Perez MD CT ORDERABLES F inal Result * (ABNORMAL) CBC WITH DIFFERENTIAL (05/16/2024 12:56 PM CDT) WBC 12.4(H) 4.0 - 9.8 K/uL 05/16/2024 1:37 PM CDT [facility] - [facility] RBC 4.29 3.90 - 4.90 M/uL 05/16/2024 1:37 PM CDT [facility] - [facility] HEMOGLOBIN 12.4 11.8 - 14.8 g/dL 05/16/2024 1:37 PM CDT [facility] - [facility] HEMATOCRIT 38.9 35.5 - 44.0 % 05/16/2024 1:37 PM CDT [facility] MCV 90.7 82.0 - 99.0 fL 05/16/2024 1:37 PM CDT [facility] - [facility] MCH 28.9 27.2 - 32.6 pg 05/16/2024 1:37 PM CDT [facility] - [facility] MCHC 31.9 31.5 - 35.5 g/dL 05/16/2024 1:37 PM CDT [facility] - [facility] RDW 14.3 11.5 - 14.5 % 05/16/2024 1:37 PM CDT [facility] - [facility] RDW-STDEV 46.6 37.1 - 48.7 fL 05/16/2024 1:37 PM CDT [facility] - [facility] PLATELETS 338 140 - 350 K/uL 05/16/2024 1:37 PM CDT [facility] - [facility] MPV 10.4 9.3 - 12.4 fL 05/16/2024 1:37 PM CDT [facility] - [facility] NEUTROPHILS 83 % 05/16/2024 1:37 PM CDT [facility] - [facility] LYMPHOCYTES 13 % 05/16/2024 1:37 PM CDT [facility] - [facility] MONOCYTES 3 % 05/16/2024 1:37 PM CDT [facility] - [facility] EOSINOPHILS 0 % 05/16/2024 1:37 PM CDT [facility] SERVICES - . [facility] BASOPHILS 0 % 05/16/2024 1:37 PM CDT [facility] - [facility] IMMATURE GRANULOCYTES 1 % 05/16/2024 1:37 PM CDT [facility] - . [facility] Comment:IG (Immature Granulo cyte) count includes Metamyelocytes, Myelocytes, and Promyelocytes NEUTROPHIL ABSOLUTE 10.32(H) 1.90 - 7.00 K/uL 05/16/2024 1:37 PM CDT [facility] - . [facility] LYMPHOCYTE ABSOLUTE 1.57 0.70 - 4.50 K/uL 05/16/2024 1:37 PM CDT [facility] SERVICES - . [facility] MONOCYTE ABSOLUTE 0.33 0.10 - 1.30 K/uL 05/16/2024 1:37 PM CDT [facility] EOSINOPHIL ABSOLUTE 0.03 0.00 - 0.70 K/uL 05/16/2024 1:37 PM CDT [facility] LABORATORY SERVICES - . [facility] BASOPHILS ABSOLUTE 0.05 0.00 - 0.20 K/uL 05/16/2024 1:37 PM CDT [facility] SERVICES - [facility] IMMATURE GRANULOCYTES ABSOLUTE 0.07(H) 0.00 - 0.03 K/uL 05/16/2024 1:37 PM CDT [facility] LABOR[facility]ORY [facility] Blood Venipuncture / Unknown 05/16/2024 12:56 PM CDT 05/16/2024 1:13 PM CDT Terrell Perez MD HEMATOLOGY ORDERA BLES Final Result Performing Organization Address [facility]/ZIP Co de Phone Number [facility] CLIA# [id number] [address] [place] [address] * (ABNORMAL) PTT (05/16/2024 12:56 PM CDT) PTT 23.5(L) 24.4 - 36.4 seconds 05/16/2024 1:47 PM CDT [facility] LABORATORY [facility] Comment: PTT Therapeutic Range: Heparin Level PTT (seconds) <0.10 units/mL <55.8 0.10 - 0.30 units/mL 55.8 - 74.3 0.30 - 0.70 units/mL* 74.3 - 111.2* 0.70 - 1.00 units/mL 111.2 - 138.9 *corresponds to therapeutic range for unfractionated heparin Blood Venipuncture / Unknown 05/16/2024 12:56 PM CDT 05/16/2024 1:13 PM CDT Terrell Perez MD HEMATOLOGY ORDERA BLES Final Result Performing Organization Address City/[facility]/ZIP Co de Phone Number [facility] CLIA# [id number] [address] [place] [address] * SEDIMENTATION RATE (05/16/2024 12:56 PM CDT) ESR (SEDIMENTATION RATE) 19 <=30 mm/Hr 05/16/2024 2:42 PM CDT [facility] LABORAT[facility] Blood Venipuncture / Unknown 05/16/2024 12:56 PM CDT 05/16/2024 1:13 PM CDT Eliot Mak MD HEMATOLOGY ORDERABLES Final Re sult [facility] [employer] [facility]# [id number] [address] [place] [address] * PROTIME-INR (05/16/2024 12:56 PM CDT) PROTIME 12.9 12.7 - 15.1 Seconds 05/16/2024 1:47 PM CDT [facility] LABORATORY [facility] INR 1.0 0.9 - 1.1 05/16/2024 1:47 PM CDT [facility] LABORATORY [facility] Blood Venipuncture / Unknown 05/16/2024 12:56 PM CDT 05/16/2024 1:13 PM CDT Narrative [facility] LABORATORY [facility] - 05/16/2024 1:47 PM CDT INR Therapeutic Range: Adult: 2.0 - 3.0 for pulmonary embolism or prophylaxis against venous thrombosis or systemic embolization. 2.0 - 3.0 for patients with tissue heart valves. 2.5 - 3.5 for patients with mechanical heart valves or post [place]. Pediatric (12 years and under): 1.5 - 3.0 Although the target range in children is not well established, INR values of 1.5 - 3.0 are recommended for most patients. Higher values have been used in children with prosthetic cardiac valves and hereditary clotting disorders. (<3 days) therapeutic ranges have not been established. us Terrell Perez MD HEMATOLOGY ORDERA BLES Final Result Performing Organization Address [facility] Co de Phone Number [facility] [employer] SERVICES - [facility]# [id number] [address] [place] [address] * TYPE AND SCREEN (05/16/2024 12:56 PM CDT) [facility] ABO GROUP A 05/16/2024 2:18 PM CDT [facility] LABORATORY SERVICES -- [facility] RH (D) TYPE Negative 05/16/2024 2:18 PM CDT [facility]ORAT[facility] SERVICES -- [facility] ANTIBODY SCREEN Negative 05/16/2024 2:18 PM CDT [facility] LABORATORY SERVICES -- [facility] Blood Venipuncture / Unknown 05/16/2024 12:56 PM CDT 05/16/2024 1:13 PM CDT Terrell Perez MD BLOOD BANK ORDERA BLES Edited Result - Final Performing Organization Address [facility] Co de Phone Number [facility] [employer] [facility] -- [facility] CLIA# [id number] [address] [place] [address] * C-REACTIVE PROTEIN (05/16/2024 12:56 PM CDT) [facility] CRP <3.0 <5.0 mg/L 05/16/2024 3:13 PM CDT [facility] LAB[facility]ATORY SERVICES - [facility] Blood Venipuncture / Unknown 05/16/2024 12:56 PM CDT 05/16/2024 1:13 PM CDT us Eliot Mak MD CHEMISTRY ORDERABLES Final Res ult Performing Organization Address [facility] Co de Phone Number [facility] [employer] [facility] [id number] [address] [place] [address] * (ABNORMAL) COMPREHENSIVE METABOLIC PANEL (05/16/2024 12:56 PM CDT) [facility] SODIUM 136 136 - 145 mmol/L 05/16/2024 1:41 PM [facility] [employer] SERVICES [facility] POTASSIUM 4.7 3.5 - 5.0 mmol/L 05/16/2024 1:41 PM [facility] [employer] [facility] Comment:Moderate hemolysis p resent. Can cause significant falsely elevated result. Redraw if indicated. CHLORIDE 100 98 - 107 mmol/L 05/16/2024 1:41 PM [facility] [employer] SERVICES [facility] CO2 21(L) 22 - 29 mmol/L 05/16/2024 1:41 PM [facility] [employer] [facility] CALCIUM 10.5(H) 8.6 - 10.2 mg/dL 05/16/2024 1:41 PM [facility] [employer] SERVICES [facility] BUN 21 8 - 23 mg/dL 05/16/2024 1:41 PM [facility] [employer] SERVICES [facility] CREATININE 0.75 0.51 - 0.95 mg/dL 05/16/2024 1:41 PM [facility] [employer] [facility] GLUCOSE 101(H) 74 - 99 mg/dL 05/16/2024 1:41 PM [facility] [employer] [facility] TOTAL PROTEIN 7.8 6.7 - 8.6 g/dL 05/16/2024 1:41 PM [facility] [employer] [facility] ALBUMIN 4.4 3.5 - 5.2 g/dL 05/16/2024 1:41 PM [facility] [employer] [facility] BILIRUBIN TOTAL 0.3 0.2 - 1.1 mg/dL 05/16/2024 1:41 PM [facility] [employer] [facility] ALKALINE PHOSPHATASE 46 35 - 104 U/L 05/16/2024 1:41 PM [facility] [employer] SERVICES [facility] AST 05/16/2024 1:41 PM [facility] LABORATORY SERVICES [facility] Comment:Test cannot be perfo rmed. Sample hemolysis interference above limits. Redraw if indicated. ALT 26 <34 U/L 05/16/2024 1:41 PM [facility]ORAT[facility] SERVICES [facility] Comment:Hemolysis present. R esult may be falsely elevated. GFR >60 >=60 mL/min/1. 73 sq meter 05/16/2024 1:41 PM CDT [facility] Comment:eGFR calculated with 2020 CKD-EPI equation. Vegetarian diet, extremely high or low muscle mass, and may affect results. Cystatin C with Glomerular Filtration Rate is a suitable alternative for these patients. ANION GAP 15 8 - 16 mmol/L 05/16/2024 1:41 PM CDT [facility] Blood Venipuncture / Unknown 05/16/2024 12:56 PM CDT 05/16/2024 1:13 PM CDT Narrative [facility] - 05/16/2024 1:41 PM CDT Samples containing indocyanine green cause interferences on Total and/or Direct Bilirubin and must not be measured. us Terrell Perez MD CHEMISTRY ORDERAB LES Final Result [facility] CLIA# [id number] [address] [place] [address] * EKG 12-LEAD (05/16/2024 12:43 PM CDT) 05/16/2024 12:4 3 PM CDT Narrative INTERFACE SYSTEM - 05/16/2024 4:27 PM CDT [facility] [address] [place] [address] Test Date: 2024-05-16 Pat Name: ARIADNE GUADALUPE Department: 38 Room: 08 Gender: Female Web Applications Administrator: josé : 1955 Requested By: Order Number: [id number] Reading MD: Viral French Measurements Intervals [place] Rate: 58 P: 23 UT: 156 QRS: 22 QRSD: 90 T: 68 QT: 395 QTc: 388 Interpretive Statements Sinus Bradycardia Electronically Signed On 05-16-2024 16:27:47 CDT by Viral French Procedure Note Viral French MD - 05/16/2024 [facility] [address] , [place] [address] Test Date: 2024-05-16 Pat Name: ARIADNE GUADALUPE Department: 38 Room: 08 Gender: Female Web Applications Administrator: raulhazel : 1955 Requested By: Order Number: [id number] Reading MD: Viral French Measurements Intervals [place] Rate: 58 P: 23 UT: 156 QRS: 22 QRSD: 90 T: 68 QT: 395 QTc: 388 Interpretive Statements Sinus Bradycardia Electronically Signed On 05-16-2024 16:27:47 CDT by Viral French us Terrell Perez MD ECG ORDERABLES F inal Result Performing Organization Address City/State/[facility] Co de Phone Number INTERFACE SYSTEM Refer to clinic/hospital department from Last 3 Months Insurance [place]ICAID [place] [facility] [id number] RX [employer] RX Member Subscriber Plan / Payer (Ef fective 2024-Present) Name:Ariadne Guadalupe Relation to Subscriber:Self Name:Ariadne Guadalupe Payer ID:Not on file Group ID:[id number] Type:RX Medicare Part D Address: [address]ARROS [place]ICAID [place] Advance Directives For more information, please contact: [phone] * Full Code (Latest Code Status on File) Date Activated Date Inactivated Comments 03/30/2012 1:35 PM 03/31/2012 6:32 PM Care Teams Fibre Composite Technician Relationship Specialty Start Date End Date Maximo Arreguin MD PCP - General Family Practice 03/29/12
--- OUTSIDE RECORDS SUMMARY | 2024-06-20 10:52 | XMS_ITS | Encounter Summary ---
Author Organization [facility] Address [address] [place] [address] Phone Care Team Providers Care Landscape Nurseryman Name Role Phone Tanner Benítez MD Primary Care Provider [phone] Sean Rendon MD Unavailable [phone] Aydin Lino MD Primary Care Provider [phone] Encounter Details Date Type Department Care Team ([facility] Contact Info) Description 06/25/2021 Telephone [facility] [address] [place] [address] Sean Rendon MD [address] [address] Social History Tobacco Use Types Packs/Day Years Used Date Smoking Tobacco: Never Assessed Comments Unknown Sex and Gender Information Value Date Recorded Sex Assigned at Not on file Legal Sex Female 11:47 AM CDT Gender Identity Not on file Sexual Orientation Not on file documented as of this encounter Miscellaneous Notes * Telephone Encounter - Julia Garay - 06/25/2021 3:55 PM CDT Called pt to confirm inpatient auditor appt. Patient cancelled stating that she had a in the family. Patientstates she will call and reschedule at a later time documented in this encounter Plan of Treatment Upcoming Encounters Date Type Department Care Team ([facility] Contact Info) Description 08/05/2024 8:15 AM CDT Lab [facility] [address] [phone] Lab, [facility] 08/05/2024 8:30 AM CDT Office Visit [facility] [address] [phone] Sean Rendon MD [facility] [id number] 08/08/2024 10:30 AM CDT Lab [facility] [address] [phone] Lab, [facility] 08/08/2024 10:45 AM CDT Office Visit [facility] [address] [phone] Sean Rendon MD [facility] [address] M[address]NE[address] [place] [phone] documented as of this encounter Visit Diagnoses Not on filedocumented in this encounter Care Teams Landscape Nurseryman Relationship Specialty Start Date End Date Tanner Benítez MD [address] [place] [address] PCP - General Family Medicine 05/21/21 11/20/23 Aydin Lino MD [address] [place] [address] PCP - General Internal Medicine 02/07/24 Sean Rendon MD [address] [place] [phone] Consulting Physician Oncology 05/21/21 documented as of this encounter
--- OUTSIDE RECORDS SUMMARY | 2024-06-20 10:52 | XMS_ITS ---
Author Organization [facility] Address [address] [place] [address] Care Team Providers Care School Crossing Guard Supervisor Name Role Phone BLAKE PETERS MD Unavailable Unavailable Mega Cartwright Unavailable [phone] REASON FOR VISIT Received TRANSFORMER INSPECTOR Form Encounters Encounter Location Date Provider Diagnosis [facility] [address] [place] [address] 06/13/2024 Mega Cartwright Plan Of Treatment No Information Progress Notes * ARIADNE GUADALUPE BDOB:[birth year] (68 yo F)Acc No.[id number]:06/13/2024 Progress Notes Patient: ARIADNE LUO Provider: Nicolas CARTWRIGHT MD :1955 A ge:68 Y S ex:Female Date:06/13/2024 Address:[address] [place], [place] [id number] Subjective: * Chief Complaints: * 1 . Received TRANSFORMER INSPECTOR Form. * Medical History: Objective: * Vitals: Assessment: Plan: * Treatment: * * Electronic signature of Teagan Cartwright MD on 06/20/2024 at 11:51 AM EDT Sign off status: Pending * Provider: Nicolas CARTWRIGHT MD Date: 06/13/2024 Generated for Artemio brennan/Bobby/Rupalitting on: 06/20/2024 11:51 AM EDT
--- OUTSIDE RECORDS SUMMARY | 2024-06-20 10:52 | XMS_ITS | Encounter Summary ---
Author Organization [facility] Address [address] [place] [address] Phone Care Team Providers Care Accountancy Professor Name Role Phone Tanner Benítez MD Primary Care Provider [phone] Sean Rendon MD Unavailable [phone] Aydin Lino MD Primary Care Provider [phone] Encounter Details Date Type Department Care Team (Late st Contact Info) Description 06/28/2021 Telephone [facility] [address] [phone] Sean Rendon MD [address] [address] Social History Tobacco Use Types Packs/Day Years Used Date Smoking Tobacco: Never Assessed Comments Unknown Sex and Gender Information Value Date Recorded Sex Assigned at Not on file Legal Sex Female 11:47 AM CDT Gender Identity Not on file Sexual Orientation Not on file documented as of this encounter Plan of Treatment Upcoming Encounters Date Type Department Care Team (Late st Contact Info) Description 08/05/2024 8:15 AM CDT Lab [facility] [address] [phone] Lab, [facility] 08/05/2024 8:30 AM CDT Office [facility] [address] [phone] JusticeSean MD [address] [facility] [address] [place] [address] 08/08/2024 10:30 AM CDT Lab [facility] [address] [phone] Lab, [facility] 08/08/2024 10:45 AM CDT Office Visit [facility] [address] [phone] Sean Rendon MD [address] [facility] [address] [place], [place] [phone] documented as of this encounter Visit Diagnoses Not on filedocumented in this encounter Care Teams Accountancy Professor Relationship Specialty Start Date End Date Tanner Benítez MD [address] [place] [address] PCP - General Family Medicine 05/21/21 11/20/23 Aydin Lino MD [address] [place] [address] PCP - General Internal Medicine 02/07/24 Sean Rendon MD [address] [place] [phone] Consulting Physician Oncology 05/21/21 documented as of this encounter
--- OUTSIDE RECORDS SUMMARY | 2024-06-20 10:52 | XMS_ITS | Clinical Summary ---
Author Organization [facility] Address [address], [facility] [address] [place] [address] Phone Care Team Providers Care Computer Programming Supervisor Name Role Phone Sean Rendon MD Unavailable [phone] Aydin Lino MD Primary Care Provider [phone] Allergies Active Allergy Reactions Criticality Noted Date Comments Azithromycin Nausea 01/20/2022 Codeine Nausea,Vomiting 09/25/2012 Hydrocodone-Acetaminophen Vomiting 11/11/2020 Can't take any opiods Hydromorphone Vomiting Medium 09/26/2012 Morphine Nausea Medium 09/25/2012 Stomach goes into complete spasms Stomach goes into complete spasms Prochlorperazine Other (see Comments) 09/25/2012 Makes her go crazy Makes her go crazy Sulfa Antibiotics Other (see Comments) 09/25/2012 Severe headache Medications losartan (COZAAR) 100 MG Tablet losartan 100 mg tablet TAKE 1 TABLET BY MOUTH ONCE DAILY 0 Active metroNIDAZOLE (METROGEL) 0.75 % Gel APPLY THIN LAYER TOPICALLY TO AFFECTED AREA OF FACE TWICE DAILY 5 Active Active Problems Problem Noted Date Diagnosed Date Iron adverse reaction 05/20/2024 Iron deficiency anemia, unspecified 01/20/2022 Encounters Date Type Department Care Team Description 05/10/2024 10:30 AM CDT Clinical Support [facility] [address] [phone] [facility] Iron deficiency anemia due to chronic blood loss (Primary Dx) 05/10/2024 Travel 05/06/2024 8:15 AM CDT Office Visit [facility] [address] [phone] Tahmina Cummins APRN, WEN Iron deficiency anemia due to chronic blood loss (Primary Dx) 05/06/2024 8:00 AM CDT Lab [facility] [address] [phone] Lab, [facility] Iron deficiency anemia due to chronic blood loss 05/06/2024 Results Follow-Up [facility] [address] [phone] Sean Rendon MD FERRITIN, IRON W/ IRON BINDING CAPACITY OH, CBC WITH AUTO DIFF [place] 05/06/2024 Telephone [facility] [address] [phone] eSan Rendon MD 05/06/2024 Travel from Last 3 Months Family History Medical History Relation Name Comments Diabetes Father Cancer Sister Relation Name Status Comments Brother Alive Father Mother Alive Sister Social History Tobacco Use Types Packs/Day Years Used Date Smoking Tobacco: Never Smokeless Tobacco: Never Tobacco Cessation:Counseling Given: Not Answered Alcohol Use Standard Drinks/Week Comments Not Currently 0 (1 standard drink = 0.6 oz pur e alcohol) Sexually Active Control Partners Comments Not Currently Comments No Sex and Gender Information Value Date Recorded Sex Assigned at Not on file Legal Sex Female 11:47 AM CDT Gender Identity Not on file Sexual Orientation Not on file Last Filed Vital Signs Vital Sign Reading Time Taken Comments Blood Pressure 160/90 05/06/2024 8:46 AM CDT Pulse 61 05/06/2024 8:46 AM CDT Temperature 36.5 C (97.7 F) 05/06/2024 8:46 AM CDT Respiratory Rate 16 05/06/2024 8:46 AM CDT Oxygen Saturation 94% 05/06/2024 8:46 AM CDT Inhaled Oxygen Concentration - - Weight 102 kg (224 lb 14.4 oz) 05/06/2024 8:46 A M CDT Height 165.1 cm (5' 5 ) 05/06/2024 8:46 AM CDT Body Mass Index 37.43 05/06/2024 8:46 AM CDT Plan of Treatment Upcoming Encounters Date Type Department Care Team (Late st Contact Info) Description 08/05/2024 8:15 AM CDT Lab [facility] [address] [phone] Lab, [facility] 08/05/2024 8:30 AM CDT Office Visit [facility] [address] [phone] Sean Rendon MD [address] [place] [phone] 08/08/2024 10:30 AM CDT Lab [facility] [address] [phone] Lab, [facility] 08/08/2024 10:45 AM CDT Office Visit [facility] [address] [phone] Sean Rendon MD [address] [place] [phone] Health Maintenance Due Date Last Done Comments DEXA Bone Density 1955 Hepatitis C Virus (HCV) Screening 1955 Mammogram 1955 TdaP Immunization 1955 Colonoscopy 2002 Colorectal Cancer Screening 2002 Cologuard 12/06/2007 Immunochemical Fecal Occult Blood 12/06/2007 Pneumococcal Immunization (5 0+ years) (1 of 1 - PCV) 12/06/2007 Zoster Immunization (1 of 2) 12/06/2007 SARS-COV-2 Immunization (1 - 2023-25 season) 2023 Influenza Immunization (Seas on Ended) 2024 Respiratory Syncytial Virus (RSV) Immunization (Adult) (1 - 1-dose 75+ series) 2032 Hepatitis B Immunization Aged Out No longer eligible based on patient's age to complete this topic Meningococcal Immunization (ACWY) Aged Out No longer eligible based on patient's age to complete this topic Rotavirus Immunization Aged Out No lo nger eligible based on patient's age to complete this topic Procedures Procedure Name Priority Date/Time Associated Diagnosis Comments CBC WITH AUTO DIFF OH Routine 05/06/2024 8:09 AM CDT IRON W/ IRON BINDING CAPACITY OH Routine 05/06/2024 8:09 AM CDT Iron deficiency anemia due to chronic blood loss FERRITIN Routine 05/06/2024 8:09 AM CDT Iron deficiency anemia due to chronic blood loss from Last 3 Months Results * (ABNORMAL) IRON W/ IRON BINDING CAPACITY OH (05/06/2024 8:09 AM CDT) IRON 45(L) 50 - 212 ug/dL [facility] UIBC 375(H) 155 - 355 ug/dL [facility] TIBC 420 261 - 478 ug/dl [facility] % Saturation 11(L) 20 - 50 % [facility] 05/06/2024 8:09 AM CDT Narrative [facility] 05/06/2024 9:03 AM CDT Release to patient->Immediate us Sean Rendon MD LAB SEND OUTS Final Result [facility] [address] [place] [place] [address], [place] [phone] * (ABNORMAL) CBC WITH AUTO DIFF [place] (05/06/2024 8:09 AM CDT) WBC 8.4 4.0 - 10.0 10*3/uL [facility] HGB 11.7 11.2 - 15.7 g/dL [facility] HCT 36.1 34.1 - 44.9 % [facility] PLT 346 163 - 369 10*3/uL [facility] MPV 9.8 9.4 - 12.4 fL [facility] RBC 4.10 3.93 - 5.22 10*6/uL [facility] MCV 88 79 - 95 fL [facility] MCH 28.5 25.6 - 32.2 pg [facility] MCHC 32.4 32.2 - 36.5 g/dL [facility] RDW 13.6 11.6 - 14.4 % [facility] Neutrophils % 54.7 36.0 - 66.0 % [facility] Lymphocytes % 30.5 19.0 - 40.0 % [facility] Monocytes % 9.4 4.1 - 12.1 % [facility] Eosinophils % 4.2(H) 0.0 - 3.5 % [facility] Basophils % 0.8 0.0 - 1.0 % [facility] Absolute Neutrophils 4.6 1.4 - 6.6 10*3/uL [facility] Absolute Lymphocytes 2.6 0.8 - 4.0 10*3/uL [facility] Absolute Monocytes 0.8 0.2 - 1.2 10*3/uL [facility] Absolute Eosinophils 0.4 0.0 - 0.4 10*3/uL [facility] Absolute Basophils 0.1 0.0 - 0.1 10*3/uL [facility] 05/06/2024 8:09 AM CDT us Sean Rendon MD LAB SEND OUTS Final Result [facility] [place] [address], * (ABNORMAL) FERRITIN (05/06/2024 8:09 AM CDT) Ferritin 8(L) 11 - 307 ng/mL [facility] Blood 05/06/2024 8:09 AM CDT Narrative [facility] - 05/06/2024 3:38 PM CDT Release to patient->Immediate Sean Rendon MD CHEMISTRY ORDERABLES Final R esult [facility] [place] [address], [place] [phone] from Last 3 Months Insurance [place] [address] MEDICARE C [facility] Care Teams Computer Programming Supervisor Relationship Specialty Start Date End Date Aydin Lino MD [address] [place] [address] PCP - General Internal Medicine 02/07/24 Sean Rendon MD [address] [place] [phone] Consulting Physician Oncology 05/21/21
== END 2024-06-20 10:09 | disposition home or self-care (01) ==
PROVIDERS: PCP Nurse Practitioner Family; Visit Provider Family Medicine
DX: Z78.0 Asymptomatic menopausal state (principal); M85.852 Other specified disorders of bone density and structure, left thigh; M85.851 Other specified disorders of bone density and structure, right thigh
CPT/HCPCS: 77080